=== PATIENT | male | born 1965 | race Caucasian/White ===

== ENCOUNTER 2023-05-10 13:03 | Outpatient (AMB) | payer OTHER, SELFPAY ==
--- NOTE | 2023-05-10 13:15 | A.OFFVIS_ITS ---
Intake Vital Signs 05/10/23 13:18 Height 5 ft 9 in Weight 232 lb BMI 34.3 BP 134/86 Blood Pressure Location Lt brachial Position Sitting Pulse 86 Intake Visit Reasons: Elevated LFTs Intake Note: Patient elevated Elevated LFTs Patient denies any GI issues. Career Coordinator Required: No Accompanied by: Self / Same As Patient Allergies No Known Allergies Allergy (Verified 05/10/23 13:15) HPI HPI Comments History of Present Illness Details 57-year-old male referred with elevated liver enzymes- he says he drank heavily-his entire life- until 10 days ago. He had increased over the past year-however he realizes that it was not good for his liver. No known family history of liver disease He has made dietary modifications as well. Appetite is good-no acid reflux He has no abdominal pain, nausea, vomiting, hematemesis, hematochezia fever chills EGD colonoscopy Dr. Carey 2020-no issues PFSH Surgical History H/O circumcision H/O colonoscopy H/O esophagogastroduodenoscopy Status post laser ablation of incompetent vein Social History Household Members: Spouse Alcohol intake: former Patient Tobacco Use Status: Former Tobacco user Review of Systems Const All systems reviewed & are unremarkable except as noted in HPI and below Card Denies chest pain and Denies dyspnea Resp Denies dyspnea GI Denies abdominal pain, Denies hematochezia, Denies change in bowel habits, Denies heartburn, Denies nausea and Denies vomiting Psych Denies anxiety and Denies depression Physical Exam Vital Signs: Last Vital Signs Pulse 86 05/10/23 13:18 BP 134/86 05/10/23 13:18 BMI result Body Mass Index 34.3 Const General: cooperative, healthy appearing, comfortable and no acute distress Orientation/consciousness: patient oriented x3 Limitations: no limitations Eyes Conjunctivae: conjunctivae normal Resp Effort & Inspection: normal respiratory effort and able to speak in complete sentences Auscultation: clear to auscultation bilaterally, no rales, no rhonchi and no wheezes Cardio Rate: regular rate Rhythm: regular rhythm Heart sounds: S1 normal heart sound present and S2 normal heart sound present GI Palpation (GI): Soft to palpation and nontender Auscultation: normal bowel sounds Skin General skin exam: no rashes or lesions noted Neuro General: patient oriented x3 Extrem General: Yes full ROM Psych Appearance: grossly normal and well kempt Mental Status: mental status grossly normal Speech and movement: Normal speech and movement present and Clear speech present Affect: normal affect Attitude: cooperative Thought process: Normal thought process present Thought content: Normal thought content present Insight: Good insight present (Psych) Judgement: Good judgement present (Psych) Results Reviewed Results Reviewed: 12/2022 AST/ALT-64/57 PT-110 Assessment & Plan Assessment & Plan (1) Elevated liver enzymes: Code(s): R74.8 - Abnormal levels of other serum enzymes Plan: Labs, U/S (2) Alcohol abuse: Comment: stopped 10 days ago Code(s): F10.10 - Alcohol abuse, uncomplicated Orders: Orders Vitamin B12 and Folate Today F10.10 - Alcohol abuse, uncomplicated, R74.8 - Abnormal levels of other serum enzymes Comprehensive Met. Panel Today K58.9 - Irritable bowel syndrome without diarrhea Ferritin Today D64.9 - Anemia, unspecified Liver Fibrosis Pnl Today F10.10 - Alcohol abuse, uncomplicated, R74.8 - Abnormal levels of other serum enzymes Liver Panel Today R10.11 - Right upper quadrant pain Thyroid Stimulating Hormone Today R19.8 - Other specified symptoms and signs involving the digestive system and abdomen Complete Blood Count Auto Diff Today F10.10 - Alcohol abuse, uncomplicated, R74.8 - Abnormal levels of other serum enzymes NELLIE Reflex Titer and Pattern Today R74.01 - Elevation of levels of liver transaminase levels Mitochondrial Antibody Today R74.01 - Elevation of levels of liver transaminase levels Smooth Muscle Antibody Today R74.8 - Abnormal levels of other serum enzymes Hepatitis A,B,C Profile Today R79.89 - Other specified abnormal findings of blood chemistry US abdomen complete Today F10.10 - Alcohol abuse, uncomplicated, R74.8 - Abnormal levels of other serum enzymes Patient Instructions: Very pleasant very pleasant 57-year-old male long history alcohol use referred with elevated liver enzymes most likely cause is alcohol and possible fatty liver He will continue to abstain from alcohol and will continue with dietary modifications We will complete lab workup. He will have abdominal ultrasound to assess liver. Encouraged to call questions or concerns Appreciate the opportunity assist in the care this Gent Coding Level of Care Code New Pt Level 3 (19326) Diagnoses Elevated liver enzymes R74.8 Alcohol abuse F10.10 Time Spent (min) 30
[2023-05-10 13:18] VITALS: BP 134/86; PULSE 86; BMI 34.3
== END 2023-05-10 13:50 | disposition home or self-care (01) ==
PROVIDERS: PCP Internal Medicine; Visit Provider Physician Assistant
DX: R74.8 Abnormal levels of other serum enzymes (principal); F10.10 Alcohol abuse, uncomplicated
CPT/HCPCS: 99203

== ENCOUNTER → 2023-05-10 13:03 | Outpatient (BNVA) | payer OTHER, SELFPAY | PROVIDERS: PCP Internal Medicine; Visit Provider Physician Assistant | DX: R74.01 Elevation of levels of liver transaminase levels (principal); R74.8 Abnormal levels of other serum enzymes; R79.89 Other specified abnormal findings of blood chemistry; K58.9 Irritable bowel syndrome, unspecified; R10.11 Right upper quadrant pain; R19.8 Other specified symptoms and signs involving the digestive system and abdomen; R93.89 Abnormal findings on diagnostic imaging of other specified body structures; D64.9 Anemia, unspecified; F10.10 Alcohol abuse, uncomplicated | CPT/HCPCS: 99202 ==

== ENCOUNTER 2023-06-07 09:00 | Outpatient (REF) | payer OTHER, SELFPAY ==
--- NOTE | ~2023-06-07 | US_ITS ---
EXAMINATION: US ABDOMEN COMPLETE CLINICAL INFORMATION: Alcohol abuse, uncomplicated. COMPARISON: None available. TECHNIQUE: Real-time imaging of the abdominal viscera. FINDINGS: PANCREAS: The head appears normal. The body and tail are obscured by bowel gas. ABDOMINAL AORTA: The proximal, mid, and distal segments are normal in caliber. INFERIOR VENA CAVA: Visualized portions are normal. LIVER: The liver is mildly enlarged measuring 19 cm. The liver contour is normal. There is diffuse increased liver parenchymal echogenicity, consistent with hepatic steatosis. No focal hepatic lesion. There is no intrahepatic biliary duct dilatation seen. GALLBLADDER: Normal. The gallbladder is physiologically distended without evidence of stones, sludge, polyps, wall thickening or pericholecystic fluid. COMMON BILE DUCT: Normal in caliber measuring 0.5 cm in diameter. RIGHT KIDNEY: Normal. No hydronephrosis. No renal calculi or focal parenchymal lesions. The kidney measures 12.1 cm in maximum dimension. LEFT KIDNEY: Normal. No hydronephrosis. No renal calculi or focal parenchymal lesions. The kidney measures 11.5 cm in maximum dimension. SPLEEN: Normal. The spleen measures 11.2 cm in maximum dimension. FREE FLUID: None. US/US abdomen complete IMPRESSION: Mildly enlarged liver with steatosis. No cirrhotic morphology or discrete liver mass.
[2023-06-07 09:48] LABS: MANUAL DIFF FLAG NO
[2023-06-07 10:35] LABS: Basophils Absolute Auto 0.1 X10*3/uL (0.0-0.2); Basophils Percent Auto 1.2 % (0-2); Eosinophils Absolute Auto 0.3 X10*3/uL (0.0-0.4); Eosinophils Percent Auto 5.1 % (0-4); Hematocrit 48.4 % (42.0-52.0); Hemoglobin 16.1 g/dl (14.0-18.0); Imm Gran Abs Auto 0.02 X10*3/uL (0.00-0.03); Imm Gran Pct Auto 0.3 % (0.0-0.4); Lymphocytes Absolute Auto 1.6 X10*3/uL (1.2-4.9); Lymphocytes Percent Auto 27.1 % (20-40); Mean Corpuscular HGB Conc 33.3 g/dl (31.0-36.0); Mean Corpuscular Hemoglobin 32.3 pg (27.0-33.0); Mean Corpuscular Volume 97.2 fL (80.0-98.0); Mean Platelet Volume 13.3 fL (9.4-12.4); Monocytes Absolute Auto 0.6 X10*3/uL (0.1-1.2); Monocytes Percent Auto 9.9 % (2-11); Neutrophils Absolute Auto 3.3 x10*3/uL (2.0-8.3); Neutrophils Percent Auto 56.4 % (45-73); Platelet Count 115 X10*3/uL (160-400); Red Blood Count 4.98 X10*6/uL (4.60-5.80); Red Cell Distribution Width 12.2 % (11.0-16.0); White Blood Count 5.9 X10*3/uL (4.8-10.8)
[2023-06-07 11:06] LABS: Alanine Aminotransferase 66 U/L (0-40); Albumin Level 4.2 g/dL (3.5-5.0); Alkaline Phosphatase 85 U/L (39-117); Anion Gap 12 (12-20); Aspartate Amino Transferase 60 U/L (5-37); Bilirubin Direct 0.2 mg/dL (0.0-0.5); Bilirubin Total 0.6 mg/dL (0.0-1.0); Blood Urea Nitrogen 11 mg/dL (9-16); Calcium 9.6 mg/dL (8.4-10.2); Carbon Dioxide 27 mmol/L (22-29); Chloride 105 mmol/L (96-108); Estimated Glomerular Filt Rate > 60; Glucose Random 118 mg/dL (60-115); Potassium 3.8 mmol/L (3.3-5.1); Sodium 140 mmol/L (135-145)
[2023-06-07 11:19] LABS: HBS Num1 0.01 mIU/mL (0-7.99); HBsAGNum1 0.31 S/CO (0.00-0.99); Hepatitis A Antibody IgM 0.32 Index (0-0.79); Hepatitis B Core Antibody Nonreactive (Nonreactive); Hepatitis B Surface Antigen Negative (Negative); ~HepC Num1 0.17 S/CO (0.00-0.79); ~Hepatitis A Antibody IgM Nonreactive (Nonreactive); ~Hepatitis B Surface Antibody NONREACTIVE (Nonreactive); ~Hepatitis C Antibody Nonreactive (Nonreactive)
[2023-06-07 11:25] LABS: Ferritin 198 ng/mL (20-250)
[2023-06-07 11:33] LABS: Folate 17.1 ng/mL (> or = 4.0); Vitamin B12 771 pg/mL (200-900)
[2023-06-10 10:33] LABS: Anti Nuclear Antibody Screen NEGATIVE (NEGATIVE)
[2023-06-10 13:14] LABS: Mitochondrial Antibodies NEGATIVE (NEGATIVE)
[2023-06-11 15:39] LABS: Smooth Muscle Antibody <20 U (<20)
[2023-06-12 16:39] LABS: FIB-ALT 58 U/L (9-46); FIB-Alpha-2-Macroglobulin 412 mg/dL (106-279); FIB-Apolipoprotein A1 133 mg/dL (94-176); FIB-GGT 96 U/L (3-85); FIB-Haptoglobin 117 mg/dL (43-212); FIB-Total Bilirubin 0.6 mg/dL (0.2-1.2); Liver Fibrosis Score 0.79; Liver Fibrosis Stage F4; Nec Inflam Act Grade A2; Nec Inflam Act Score 0.52
== END 2023-06-07 09:01 | disposition home or self-care (01) ==
LOC: HO.US 09:00
PROVIDERS: Visit Provider Physician Assistant
DX: F10.10 Alcohol abuse, uncomplicated (principal); R74.8 Abnormal levels of other serum enzymes; R74.01 Elevation of levels of liver transaminase levels; R10.11 Right upper quadrant pain; D64.9 Anemia, unspecified; K58.9 Irritable bowel syndrome, unspecified; R79.89 Other specified abnormal findings of blood chemistry; R19.8 Other specified symptoms and signs involving the digestive system and abdomen
CPT/HCPCS: 36415; 76700; 80053; 81596; 82248; 82607; 82728; 82746; 84443; 85025; 86015; 86038; 86381; 86704; 86706; 86709; 86803; 87340

== ENCOUNTER 2023-06-14 13:41 | Outpatient (AMB) | payer OTHER, SELFPAY ==
--- NOTE | 2023-06-14 13:43 | MHC.OFFVIS ---
Intake Vital Signs 06/14/23 13:47 Height 5 ft 9 in Weight 231 lb BMI 34.1 BP 136/87 Blood Pressure Location Lt brachial Position Sitting Pulse 95 Intake Visit Reasons: 5 week follow up Intake Note: Patient follow up for alcohol abuse, lab and US results. Patient denies any GI issues. 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 U/s -reviewed Appetite is good, he does not have heartburn he has no issues with bowels-no rectal bleed Discussion about risks he undertakes with excessive alcohol use-he acknowledges that he is aware No nausea, vomiting, hematemesis, hematochezia fever chills PFSH Surgical History H/O esophagogastroduodenoscopy H/O colonoscopy H/O circumcision Status post laser ablation of incompetent vein Social History (Updated 06/15/23 @ 13:02 by Ioana Boothe PA-C) Household Members: Spouse Alcohol intake: current Patient Tobacco Use Status: Former Tobacco user Review of Systems Const All systems reviewed & are unremarkable except as noted in HPI and below Card Denies chest pain GI Denies abdominal pain, Denies hematochezia, Denies change in bowel habits, Denies heartburn, Denies nausea and Denies vomiting Psych Denies anxiety and Denies depression Physical Exam Vital Signs: Last Vital Signs Pulse 95 06/14/23 13:47 BP 136/87 06/14/23 13:47 BMI result Body Mass Index 34.1 Const General: cooperative, comfortable and no acute distress Orientation/consciousness: patient oriented x3 Limitations: no limitations Eyes Conjunctivae: conjunctival abnormal (Conjunctiva injected bilaterally no drainage) Resp Effort & Inspection: normal respiratory effort and able to speak in complete sentences Auscultation: clear to auscultation bilaterally and no wheezes Cardio Rate: regular rate Rhythm: regular rhythm GI Palpation (GI): Soft to palpation and nontender Auscultation: normal bowel sounds Neuro General: patient oriented x3 Extrem General: Yes full ROM Psych Appearance: well kempt Speech and movement: Clear speech present Affect: Labile affect present Attitude: cooperative Thought content: Normal thought content present Judgement: Fair judgement present (Psych) Results Reviewed Results Reviewed: US/US abdomen complete IMPRESSION: Mildly enlarged liver with steatosis. No cirrhotic morphology or discrete liver mass. AST/ALT-60/66 Assessment & Plan Assessment & Plan (1) Abnormal ultrasound: Code(s): R93.89 - Abnormal findings on diagnostic imaging of other specified body structures (2) Elevated liver enzymes: Code(s): R74.8 - Abnormal levels of other serum enzymes Plan: Repeat labs (3) Alcohol abuse: Comment: Drinks most days, mostly beer In not forthcoming-somewhat difficult to assess-habit Code(s): F10.10 - Alcohol abuse, uncomplicated Plan: Discuss risks Orders: Orders Alcohol, Ethyl Urine Screen 06/14/23 F10.10 - Alcohol abuse, uncomplicated, R74.8 - Abnormal levels of other serum enzymes, R93.89 - Abnormal findings on diagnostic imaging of other specified body structures NM hepatobiliary w pharm 06/14/23 F10.10 - Alcohol abuse, uncomplicated, R74.8 - Abnormal levels of other serum enzymes, R93.89 - Abnormal findings on diagnostic imaging of other specified body structures Complete Blood Count Auto Diff 06/14/23 F10.10 - Alcohol abuse, uncomplicated, R74.8 - Abnormal levels of other serum enzymes, R93.89 - Abnormal findings on diagnostic imaging of other specified body structures Liver Panel 06/14/23 R10.11 - Right upper quadrant pain Patient Instructions: Pleasant 57-year-old male alcohol use , transaminitis, hepatomegaly, -he does not seem motivated to discontinue We discussed labs- plt > 100 None to compare etoh-rehab- will discuss with pcp No major barriers to understanding were identified Will follow back after ultrasound Coding Level of Care Code Est Pt Level 3 (05145) Diagnoses Abnormal ultrasound R93.89 Elevated liver enzymes R74.8 Alcohol abuse F10.10 Time Spent (min) 30
[2023-06-14 13:47] VITALS: BP 136/87; PULSE 95; BMI 34.1
== END 2023-06-14 15:08 | disposition home or self-care (01) ==
PROVIDERS: PCP Internal Medicine; Visit Provider Physician Assistant
DX: R93.89 Abnormal findings on diagnostic imaging of other specified body structures (principal); R74.8 Abnormal levels of other serum enzymes; F10.10 Alcohol abuse, uncomplicated
CPT/HCPCS: 99213

== ENCOUNTER → 2023-06-14 13:41 | Outpatient (BNVA) | payer OTHER, SELFPAY | PROVIDERS: PCP Internal Medicine; Visit Provider Physician Assistant | DX: R93.89 Abnormal findings on diagnostic imaging of other specified body structures (principal); R74.8 Abnormal levels of other serum enzymes; F10.10 Alcohol abuse, uncomplicated | CPT/HCPCS: 99212 ==

== ENCOUNTER → 2023-07-02 07:42 | Outpatient (REF) | payer OTHER, SELFPAY ==
--- NOTE | ~2023-07-02 | NM_ITS ---
EXAMINATION: BILIARY TRACT IMAGING STUDY WITH CCK CLINICAL INFORMATION: Alcohol abuse, uncomplicated. Abnormal findings on diagnostic imaging. COMPARISON: Abdominal ultrasound done on 06/07/2023.. TECHNIQUE: Serial gamma scintillation camera images were obtained over the abdomen for a total observation period of 60 minutes following the intravenous administration of 5 mCi Tc-99m mebrofenin. FINDINGS: There is good concentration of activity in the liver by 5 minutes post injection. Biliary activity is visualized by 5 minutes. The gallbladder is well visualized by 15 minutes. Small bowel is well visualized by 54 minutes. At 60 minutes post radiopharmaceutical injection, a 30-minute infusion of 2.1 micrograms Sincalide was then begun and an additional 40 minutes of images were obtained. There is good emptying of the gallbladder. By the end of the study there is good clearance of activity from the liver and visualization of diffuse small bowel activity. The calculated gallbladder ejection fraction is 88% (normal gallbladder ejection fraction is greater than 35%). NM/NM hepatobiliary w pharm IMPRESSION: Visualization of the gallbladder is evidence of a patent cystic duct and strong evidence against the diagnosis of acute cholecystitis. The common bile duct is patent. Gallbladder emptying and ejection fraction are normal. Liver function appears normal.
== END ==
LOC: HO.NUCMED 07:42
PROVIDERS: PCP Internal Medicine; Visit Provider Physician Assistant
DX: R93.89 Abnormal findings on diagnostic imaging of other specified body structures (principal); R74.8 Abnormal levels of other serum enzymes; F10.10 Alcohol abuse, uncomplicated
CPT/HCPCS: 78227; A9537; J2805

== ENCOUNTER 2024-07-16 08:59 | Emergency (ER) | payer OTHER, SELFPAY ==
--- NOTE | ~2024-07-16 | CT_ITS ---
EXAMINATION: CT ABDOMEN AND PELVIS WITH CONTRAST CLINICAL INFORMATION: Bladder mass COMPARISON: None available. TECHNIQUE: Multidetector volumetric images were obtained from the superior aspect of the liver through the pubic symphysis following administration 85 mL of Omnipaque 350 intravenous contrast. Sagittal and coronal reformatted images were obtained on the technologist's workstation. Oral contrast: No This CT examination was performed using dose optimization techniques as appropriate, variously including the following: *Automated exposure control *Adjustment of mA and/or kV according to patient size (this includes techniques or standardized protocols for targeted exams where dose is matched to indication/reason for exam; i.e. extremities or head) *Use of iterative reconstruction technique DLP: 699 mGy-cm FINDINGS: LUNG BASES: The visualized lung bases are unremarkable. LIVER, GALLBLADDER, AND BILIARY TREE: The liver is normal in size, shape, and attenuation. No focal hepatic lesion or biliary ductal dilatation is present. The gallbladder is unremarkable with no evidence of radiopaque gallstones, gallbladder wall thickening, or obvious pericholecystic inflammatory changes. PANCREAS: Unremarkable. SPLEEN: The spleen is unremarkable. There is a small accessory splenule along the inferior tip of spleen. ADRENAL GLANDS: Unremarkable. KIDNEYS AND URETERS: The kidneys are normal in size, shape, and attenuation. No hydronephrosis, hydroureter, or calculi seen. No perinephric stranding. There is a 9 mm hypodensity posterior cortex mid pole left kidney, indeterminate. BLADDER: The bladder is nondistended mild bladder wall thickening.. GASTROINTESTINAL TRACT: There is moderate scattered stool and diverticuli seen throughout the colon without distention. No evidence of diverticulitis. There is nonspecific mild wall thickening of sigmoid colon. No pericolic fat stranding seen. The small bowel loops are normal caliber. Appendix is not visualized. ABDOMINAL WALL: Small umbilical hernia containing fat is noted. There is a soft tissue density in the right inguinal canal measuring 6 cm in length LYMPH NODES: Normal. VASCULAR: Unremarkable. PELVIC VISCERA: There is moderate enlargement of prostate gland. Heterogeneous hyper density seen in the anterior aspect of prostate gland. Recommend ultrasound or MRI correlation. OSSEOUS STRUCTURES: No aggressive lytic or sclerotic process seen. There are degenerative disc changes T12-L1, L1-2, L2-3 and L5-S1 disc levels with ventral spondylosis. No aggressive lytic or sclerotic process seen. CT/CT abdomen pelvis w IV con IMPRESSION: Moderate prostate enlargement with mild bladder wall thickening. Slightly heterogenous anterior prostate gland. Recommend ultrasound or MRI correlation. Mild wall thick no sigmoid colon without pericolic fat stranding likely nonspecific or constipation. Fleischner guidelines were followed. Electronically signed by: Julián Rodriguez MD 07/16/2024 11:01 AM [facility]
[2024-07-16 09:02] VITALS: BP 122/73; PULSE 67; RESP 16; TEMP 36; O2SAT 98; BMI 41.2
[2024-07-16 09:08] VITALS: BP 122/73; PULSE 68; RESP 16; TEMP 36.3
[2024-07-16 09:46] LABS: Appearance Urine Clear; Color Urine Yellow; Glucose Urine UA Negative (Negative); Leukocyte Esterase Urine Negative (Negative); Nitrite Urine Negative (Negative); PH 6.5 (5.0-9.0); Specific Gravity - Urine 1.025 (1.005-1.025); Urine Blood Negative (Negative); Urine Ketones Negative (Negative); Urine Protein Trace mg/dL (Neg-Trace)
[2024-07-16 09:55] LABS: MANUAL DIFF FLAG NO
[2024-07-16 09:56] LABS: Basophils Percent Auto 0.7 % (0-2); Eosinophils Absolute Auto 0.3 X10*3/uL (0.0-0.4); Eosinophils Percent Auto 5.1 % (0-4); Hematocrit 48.1 % (42.0-52.0); Hemoglobin 16.4 g/dl (14.0-18.0); Imm Gran Abs Auto 0.01 X10*3/uL (0.00-0.03); Imm Gran Pct Auto 0.2 % (0.0-0.4); Lymphocytes Absolute Auto 1.8 X10*3/uL (1.2-4.9); Mean Corpuscular HGB Conc 34.1 g/dl (31.0-36.0); Mean Corpuscular Hemoglobin 31.9 pg (27.0-33.0); Mean Corpuscular Volume 93.6 fL (80.0-98.0); Mean Platelet Volume 12.8 fL (9.4-12.4); Monocytes Absolute Auto 0.5 X10*3/uL (0.1-1.2); Monocytes Percent Auto 8.8 % (2-11); Neutrophils Absolute Auto 3.1 x10*3/uL (2.0-8.3); Neutrophils Percent Auto 54.2 % (45-73); Platelet Count 107 X10*3/uL (160-400); Red Blood Count 5.14 X10*6/uL (4.60-5.80); Red Cell Distribution Width 12.7 % (11.0-16.0); White Blood Count 5.7 X10*3/uL (4.8-10.8)
--- NOTE | 2024-07-16 09:57 | ED.MALEGU ---
HPI - Male Genitourinary General Chief complaint: Urogenital-Male Stated complaint: Blood in urine Time Seen by Provider: 07/16/24 09:22 Source: patient Mode of arrival: ambulatory Limitations: no limitations History of Present Illness ED Provider: Mark Irwin HPI Narrative: 59 yold male with hypertension, high cholesterol obstructive sleep apnea, and alcohol abuse presents to the ED for presents to ED for hematuria for the past 4 days and slight dysuria. Patient states no abdominal pain, nausea, vomiting, fever, chills, or flank pain. Patient denies any recent trauma to abdomen, flank, or genitourinary systems. Related Data Home Medications ?Medication ?Instructions ?Recorded ?Confirmed benazepril 10 1 tab PO DAILY 05/10/23 mg-hydrochlorothiazide 12.5 mg tablet ferrous sulfate 325 mg (65 mg 325 mg PO DAILY 05/10/23 iron) tablet metoprolol succinate 25 mg 25 mg PO DAILY 05/10/23 tablet,extended release 24 hr simvastatin 40 mg tablet 40 mg PO QPM 05/10/23 Allergies Allergy/AdvReac Type Severity Reaction Status Date / Time No Known Allergies Allergy Verified 07/16/24 09:06 Review of Systems Review of Systems: hematuria, slight dysuria Yes all other systems are reviewed and are negative [facility] Past Medical History Surgical History H/O esophagogastroduodenoscopy H/O colonoscopy H/O circumcision Status post laser ablation of incompetent vein Social History Social History (Updated 06/15/23 @ 13:02 by Ioana Boothe PA-C) Household Members: Spouse Alcohol intake: current Patient Tobacco Use Status: Former Tobacco user Advance Directives: No Advance Directives Information Provided: Yes Do you have a plan to hurt others: No Plan Physical Exam Vital Signs: Vital Signs: Last Vital Signs Temp 98.3 F 07/16/24 12:10 Pulse 56 07/16/24 12:10 Resp 16 07/16/24 12:10 BP 138/76 07/16/24 12:10 Pulse Ox 97 07/16/24 10:28 O2 Del Method Room Air 07/16/24 12:10 BMI result Body Mass Index 41.2 Const: General: cooperative, healthy appearing, comfortable, no acute distress, well developed, alert, awake and Physically active Orientation/consciousness: patient oriented x3 HEENT: Head: Yes normal to inspection, Yes No palpable skull fracture present, Yes normocephalic, Yes atraumatic and No abrasion Eyes: General: appearance normal, both eyes and all related structures Neck: Neck: Yes normal visual inspection, Yes full ROM, Yes no lymphadenopathy, Yes no meningeal signs, Yes trachea midline, Yes supple, No anterior neck swelling and No tender Chest: Chest palpation & inspection: normal inspection of the chest and normal palpation of entire chest wall Resp: Effort & Inspection: normal respiratory effort and able to speak in complete sentences Auscultation: clear to auscultation bilaterally Cardio: Jugular venous distension: no JVD Heart sounds: S1 normal heart sound present and S2 normal heart sound present GI: Inspection: Yes normal to inspection Palpation (GI): Soft to palpation, not firm, nontender, no guarding and not rigid : General: Yes no CVA tenderness Back/Spine/Pelvis: Back: no CVA tenderness and No back tenderness Skin: General skin exam: no rashes or lesions noted, elasticity normal and turgor normal Neuro: General: patient oriented x3, gait normal, tone normal, moves all extremities, Normal light touch and pain sensation, no meningeal signs, no focal motor deficits, CN's II-XI intact bilaterally and normal sensation to monofilament Extrem: General: Yes normal to inspection, Yes full ROM and Yes capillary refill normal Psych: Appearance: grossly normal, well kempt and not disheveled Medications Administered Discontinued Medications Generic Name Dose Route Start Last Admin Trade Name Freq PRN Reason Stop Dose Admin Iohexol 100 ml 07/16/24 10:40 07/16/24 10:41 Iohexol 350 Mg/Ml 100 Ml Infus..Btl IV 07/16/24 10:41 85 ml ONCE ONE Administration Medical Decision Making Medical Decision Making MDM Narrative: 59-year-old male presents to ED stating hematuria for the past 4 days. Patient has last had hematuria last night. Patient states slight discomfort last night. Patient denies any abdominal pain. Labs showed normal H& H. UA negative for any blood. Kidney function normal. Patient denies any recent unprotected sexual activity. Was sent for CT scan to make sure there is no bladder mass prostate mass. 12:00pm: Abdominal CT scan shows BPH. Negative for kidney stones, pyelonephritis, or obvious bladder mass. CT scan does shows anterior prostate hyperdensity. Patient informed of this and need to follow-up with urology. Patient given copy of imaging. Patient explained worrisome signs and informed to return to the ED immediately. Not suspecting pyelonephritis, gross hematuria, anemia, pyelonephritis, kidney stones, urosepsis, or any other life-threatening etiology. Differential Diagnosis Differential Diagnoses: The differential diagnosis associated with the presentation includes (BPH, UTI, kidney stones) Admission/Observation Consideration of admission/observation: Escalation of care including admission/observation considered Lab Data MDM Lab Attestation statement: I reviewed the patient's lab results. 07/16/24 09:50 07/16/24 09:50 Labs: Lab Results 07/16/24 07/16/24 Range/Units 09:34 09:50 WBC 5.7 (4.8-10.8) X10*3/uL RBC 5.14 (4.60-5.80) X10*6/uL Hgb 16.4 (14.0-18.0) g/dl Hct 48.1 (42.0-52.0) % MCV 93.6 (80.0-98.0) fL MCH 31.9 (27.0-33.0) pg MCHC 34.1 (31.0-36.0) g/dl RDW 12.7 (11.0-16.0) % Plt Count 107 L (160-400) X10*3/uL MPV 12.8 H (9.4-12.4) fL Immature Gran % (Auto) 0.2 (0.0-0.4) % Neut % (Auto) 54.2 (45-73) % Lymph % (Auto) 31.0 (20-40) % [place] % (Auto) 8.8 (2-11) % Eos % (Auto) 5.1 H (0-4) % Baso % (Auto) 0.7 (0-2) % Lymph # (Auto) 1.8 (1.2-4.9) X10*3/uL [place] # (Auto) 0.5 (0.1-1.2) X10*3/uL Eos # (Auto) 0.3 (0.0-0.4) X10*3/uL Baso # (Auto) 0.0 (0.0-0.2) X10*3/uL Abs Immat Gran (auto) 0.01 (0.00-0.03) X10*3/uL Absolute Neuts (auto) 3.1 (2.0-8.3) x10*3/uL Absolute Nucleated RBC 0.000 (0.0-0.012) X10*3/uL Nucleated RBC % (auto) 0.0 (0.0-0.2) /100WBC PT 12.9 H (10.9-12.4) SEC INR 1.1 (0.9-1.1) APTT 37.8 H (26.0-36.8) SEC Sodium 140 (135-145) mmol/L Potassium 3.9 (3.3-5.1) mmol/L Chloride 104 (96-108) mmol/L Carbon Dioxide 28 (22-29) mmol/L Anion Gap 12 (12-20) BUN 15 (9-16) mg/dL Creatinine 0.80 (0.5-1.4) mg/dL Estim Creat Clear Calc 108.4 Estimated GFR > 60 Random Glucose 102 (60-115) mg/dL Calcium 9.2 (8.4-10.2) mg/dL Total Bilirubin 1.0 (0.0-1.0) mg/dL AST 39 H (5-37) U/L ALT 40 (0-40) U/L Alkaline Phosphatase 74 (39-117) U/L Total Protein 7.5 (6.5-8.0) g/dL Albumin 4.0 (3.5-5.0) g/dL Urine Color Yellow Urine Appearance Clear Urine pH 6.5 (5.0-9.0) Ur Specific [place] 1.025 (1.005-1.025) Urine Protein Trace (Neg-Trace) mg/dL Urine Glucose (UA) Negative (Negative) mg/dL Urine Ketones Negative (Negative) mg/dL Urine Blood Negative (Negative) Urine Nitrite Negative (Negative) Ur Leukocyte Esterase Negative (Negative) Independent Interpretation I performed an independent interpretation of an: CT Scan Radiology Impression Discussion of test interpretation with radiology: I have reviewed the radiologist's reading. Independent Historian Clinical information obtained from an independent historian. History obtained from or confirmed by: Other (Patient) External Record Review External record reviewed: Other (Prior Visits) Discharge Plan Discharge Clinical Impression: BPH (benign prostatic hyperplasia), Hematuria Patient Disposition: Home, Self-Care Instructions: Enlarged Prostate (BPH) (ED), Hematuria (ED) Additional Instructions: You need follow-up with urologist. Return to the ED immediately for profuse blood in urine, abdominal pain, nausea, vomiting, flank pain, fever, chills, testicular pain, or any other concerning symptoms. CT/CT abdomen pelvis w IV con IMPRESSION: Moderate prostate enlargement with mild bladder wall thickening. Slightly heterogenous anterior prostate gland. Recommend ultrasound or MRI correlation. Mild wall thick no sigmoid colon without pericolic fat stranding likely nonspecific or constipation. Fleischner guidelines were followed. Electronically signed by: Julián Rodriguez MD 07/16/2024 11:01 AM [facility] [place] Prescriptions: No Action ferrous sulfate 325 mg (65 mg iron) tablet 325 mg PO DAILY benazepril-hydrochlorothiazide 10-12.5 mg tablet 1 tab PO DAILY metoprolol succinate 25 mg tablet extended release 24 hr 25 mg PO DAILY simvastatin 40 mg tablet 40 mg PO QPM Referrals: Walker De La Fuente MD [Physician] - (Hematuria, BPH, hyperdensity on prostate gland per CT scan) Stand Alone Forms: Work/School Release Interventions: ED Discharge Assessment Last Done: 07/16/24 12:10 Discharge Date/Time: 07/16/24 12:12 Print Language: Taiwanese
[2024-07-16 10:01] LABS: INTERNATIONAL NORM RATIO 1.1 (0.9-1.1); Prothrombin Time 12.9 SEC (10.9-12.4)
[2024-07-16 10:03] LABS: Partial Thromboplastin Time 37.8 SEC (26.0-36.8)
[2024-07-16 10:14] LABS: Alanine Aminotransferase 40 U/L (0-40); Alkaline Phosphatase 74 U/L (39-117); Anion Gap 12 (12-20); Aspartate Amino Transferase 39 U/L (5-37); Blood Urea Nitrogen 15 mg/dL (9-16); Calcium 9.2 mg/dL (8.4-10.2); Carbon Dioxide 28 mmol/L (22-29); Chloride 104 mmol/L (96-108); Creatinine Clr Calc Pharmacy 108.4; Estimated Glomerular Filt Rate > 60; Glucose Random 102 mg/dL (60-115); Potassium 3.9 mmol/L (3.3-5.1); Sodium 140 mmol/L (135-145); Total Protein 7.5 g/dL (6.5-8.0)
[2024-07-16 10:28] VITALS: BP 125/68; PULSE 61; RESP 16; TEMP 36.8; O2SAT 97
[2024-07-16] MEDS: iohexoL 350 MG/ML 100 ML INFUS..BTL IV (10:41)
[2024-07-16 11:52] VITALS: BP 138/76; PULSE 56; RESP 16; TEMP 36.8
[2024-07-16 12:10] VITALS: BP 138/76; PULSE 56; RESP 16; TEMP 36.8
== END 2024-07-16 12:12 | disposition home or self-care (01) ==
PROVIDERS: Physician Assistant; Emergency Provider Emergency Medicine Emergency Medical Services; PCP Internal Medicine
DX: N40.0 Benign prostatic hyperplasia without lower urinary tract symptoms (principal); R31.9 Hematuria, unspecified; R30.0 Dysuria; R10.2 Pelvic and perineal pain; Z79.899 Other long term (current) drug therapy; Z87.891 Personal history of nicotine dependence
CPT/HCPCS: 36415; 74177; 80053; 81003; 85025; 85610; 85730; 99284; Q9967

== ENCOUNTER 2024-09-14 15:45 | Outpatient (AMB) | payer OTHER, SELFPAY ==
--- NOTE | 2024-09-14 16:02 | A.OFFVIS_ITS ---
Intake Visit Reasons: BPH Intake Note: New Patient presents for initial visit for BPH Urology Medications: none Blood Thinner: none PVR: 27ml's Leather Softener Required: No Accompanied by: Self / Same As Patient Allergies No Known Allergies Allergy (Verified 09/14/24 20:50) Medication List - Last Reconciled 09/14/24 by LEANNA Alexander benazepril-hydrochlorothiazide 10-12.5 mg 1 tab PO DAILY metoprolol succinate ER 25 mg PO DAILY simvastatin 40 mg PO QPM tamsulosin 0.4 mg PO BEDTIME 30 days HPI Comments Details: Moncho is a pleasant 59-year-old male patient of Dr. Denney. He has a past medical history of hypertension and hyperlipidemia. He presents to the office today as a new patient for ongoing lower urinary tract symptoms. In discussion with the patient today he reports noting ongoing issues with urinary urgency, urinary frequency, and episodes of nocturia up to 3 times per night. He reports having followed up with his PCP at which time he was started on oxybutynin and feels this has been somewhat helpful however has been experiencing dry mouth and constipation. In office urinalysis results reviewed with the patient today. PVR 27 mL. He denies hematuria, dysuria, foul smelling urine, changes to urinary stream, flank pain, fever, and or chills. In review of patient's chart it appears he has had a recent CT of the abdomen. 08/06 bilateral kidneys are normal in size, shape, and attenuation. No hydronephrosis, hydroureter, or calculi seen bilaterally. No perinephric stranding. There is a 9 mm hypodensity posterior cortex mid pole left kidney, indeterminate. The bladder is nondistended. Moderate prostate enlargement with mild bladder wall thickening. Slightly heterogeneous anterior prostate gland. LILLIE offered however deferred. He otherwise offers no other issues or concerns at this time. [facility] Surgical History H/O esophagogastroduodenoscopy H/O colonoscopy H/O circumcision Status post laser ablation of incompetent vein Social History Household Members: Spouse Alcohol intake: current Patient Tobacco Use Status: Former Tobacco user Review of Systems Const All systems reviewed & are unremarkable except as noted in HPI and below Physical Exam Const General: cooperative, healthy appearing, comfortable, no acute distress, well developed, alert and awake Nutritional Appearance: overweight Orientation/consciousness: patient oriented x3 Limitations: no limitations HEENT Head: Yes normal to inspection, Yes normocephalic and Yes atraumatic Ears: hearing grossly normal bilaterally Eyes General: appearance normal, both eyes and all related structures Neck Neck: Yes normal visual inspection and Yes trachea midline Chest Chest palpation & inspection: normal inspection of the chest Resp Effort & Inspection: normal respiratory effort and able to speak in complete sentences Cardio Rate: regular rate GI Inspection: Yes normal to inspection General: Yes no CVA tenderness Back/Spine/Pelvis Back: no CVA tenderness Skin General skin exam: no rashes or lesions noted Neuro General: patient oriented x3 Extrem General: Yes normal to inspection Psych Appearance: grossly normal and well kempt Mental Status: mental status grossly normal Speech and movement: Normal speech and movement present and Clear speech present Affect: normal affect Attitude: cooperative Thought process: Normal thought process present Thought content: Normal thought content present Insight: Fair insight present (Psych) Judgement: Fair judgement present (Psych) Office Procedures Post Void Residual Post Residual Void Post Void Residual (PVR): 27 [id number] Void Residual by ultrasound Results AMB Urinalysis, Automated UA Leukoctes 0 Gualberto/uL Last Edit by Brittany Severino on 09/14/24 16:16 UA Nitrite Last Edit by Brittany Severino on 09/14/24 16:16 UA Urobilinogen 0.2 mg/dL Last Edit by Brittany Severino on 09/14/24 16:16 UA Protein 15 mg/dL Last Edit by Brittany Severino on 09/14/24 16:16 UA pH 6.0 Last Edit by Brittany Severino on 09/14/24 16:16 UA Blood 0 Tom/uL Last Edit by Brittany Severino on 09/14/24 16:16 UA Specific Ogden 1.025 Last Edit by Brittany Kwongvalencia on 09/14/24 16:16 UA Ketone Last Edit by Brittany Elenitavalencia on 09/14/24 16:16 UA Bilirubin 0 mg/dL Last Edit by Brittany Elenitavalencia on 09/14/24 16:16 UA Glucose 0 mg/dL Last Edit by Brittany Elenitavalencia on 09/14/24 16:16 Results Reviewed Results Reviewed: Laboratory Last Values Urine pH (Auto) 6.0 09/14/24 16:14 Specific [place]den (Auto) 1.025 09/14/24 16:14 Urine Protein (Auto) 15 mg/dL 09/14/24 16:14 Glucose (UA)(Auto) 0 mg/dL 09/14/24 16:14 Urine Blood (Auto) 0 Tom/uL 09/14/24 16:14 Urine Bilirubin (Auto) 0 mg/dL 09/14/24 16:14 Urine Urobilinogen (Auto) 0.2 mg/dL 09/14/24 16:14 Leukocyte Esterase (Auto) 0 Gualberto/uL 09/14/24 16:14 Date of Service: 07/16/24 EXAMINATION: CT ABDOMEN AND PELVIS WITH CONTRAST FINDINGS: LUNG BASES: The visualized lung bases are unremarkable. LIVER, GALLBLADDER, AND BILIARY TREE: The liver is normal in size, shape, and attenuation. No focal hepatic lesion or biliary ductal dilatation is present. The gallbladder is unremarkable with no evidence of radiopaque gallstones, gallbladder wall thickening, or obvious pericholecystic inflammatory changes. PANCREAS: Unremarkable. SPLEEN: The spleen is unremarkable. There is a small accessory splenule along the inferior tip of spleen. ADRENAL GLANDS: Unremarkable. KIDNEYS AND URETERS: The kidneys are normal in size, shape, and attenuation. No hydronephrosis, hydroureter, or calculi seen. No perinephric stranding. There is a 9 mm hypodensity posterior cortex mid pole left kidney, indeterminate. BLADDER: The bladder is nondistended mild bladder wall thickening.. GASTROINTESTINAL TRACT: There is moderate scattered stool and diverticuli seen throughout the colon without distention. No evidence of diverticulitis. There is nonspecific mild wall thickening of sigmoid colon. No pericolic fat stranding seen. The small bowel loops are normal caliber. Appendix is not visualized. ABDOMINAL WALL: Small umbilical hernia containing fat is noted. There is a soft tissue density in the right inguinal canal measuring 6 cm in length LYMPH NODES: Normal. VASCULAR: Unremarkable. PELVIC VISCERA: There is moderate enlargement of prostate gland. Heterogeneous hyper density seen in the anterior aspect of prostate gland. Recommend ultrasound or MRI correlation. OSSEOUS STRUCTURES: No aggressive lytic or sclerotic process seen. There are degenerative disc changes T12-L1, L1-2, L2-3 and L5-S1 disc levels with ventral spondylosis. No aggressive lytic or sclerotic process seen. IMPRESSION: Moderate prostate enlargement with mild bladder wall thickening. Slightly heterogenous anterior prostate gland. Recommend ultrasound or MRI correlation. Mild wall thick no sigmoid colon without pericolic fat stranding likely nonspecific or constipation. Fleischner guidelines were followed. Assessment & Plan Assessment & Plan (1) Lower urinary tract symptoms: Code(s): R39.9 - Unspecified symptoms and signs involving the genitourinary system Category: Medical (2) Urinary urgency: Code(s): R39.15 - Urgency of urination Category: Medical (3) Urinary frequency: Code(s): R35.0 - Frequency of micturition Category: Medical (4) Nocturia: Code(s): R35.1 - Nocturia Category: Medical (5) Enlarged prostate: Code(s): N40.0 - Benign prostatic hyperplasia without lower urinary tract symptoms Category: Medical (6) Bladder wall thickening: Code(s): N32.89 - Other specified disorders of bladder Category: Medical Plan In office urinalysis results with the patient today; as noted above. PVR 27 mL. We discussed further treatment options for lower urinary tract symptoms patient was experiencing. Stop oxybutynin. Start tamsulosin as discussed and prescribed. We discussed bladder triggers/irritants. Recent CT results reviewed with the patient today; as noted above; we discussed further workup of indeterminate. Will obtain PSA. We discussed possible near future in office cystoscopy and or urodynamics for further assessment evaluation. We discussed importance of weight loss in relation to lower urinary tract symptoms as well as overall health and well-being. Follow-up in 1-3 months with PSA and PVR; or sooner with any issues, concerns, and or questions. Orders: Orders AMB Urinalysis Automated Today Z13.9 - Encounter for screening, unspecified AMB Post Void Residual by ultrasound Today N39.41 - Urge incontinence Prostate Specific Antigen Today N40.0 - Benign prostatic hyperplasia without lower urinary tract symptoms, R39.9 - Unspecified symptoms and signs involving the genitourinary system Medications: New tamsulosin 0.4 mg PO BEDTIME 30 days 30 caps 3RF N40.1 - Benign prostatic hyperplasia with lower urinary tract symptoms, R35.1 - Nocturia Patient Instructions: The patient had an opportunity to ask questions regarding the treatment plan. All questions were answered. Physical exam, labs, and imaging were discussed and reviewed in detail. As well as risks, benefits, and discussion of treatment choices. No major barriers to understanding were identified. The patient expressed understanding and agreement with the above treatment plan. The patient was made aware they should contact our office by phone for worsening of their current condition, the appearance of new symptoms, or with any questions or concerns. Compliance is encouraged with any medications and follow up testing that is ordered. It is a privilege to be allowed the opportunity to participate in? your urological care.? Again, if you have any questions or concerns If you have any questions or concerns please do not hesitate to contact me. The office is [phone]. This note is constructed using voice recognition software. While every effort has been made to ensure accuracy director security management errors may have been included. Yours sincerely, LEANNA Alexander Coding Level of Care Code New Pt Level 4 (93214) Diagnoses Lower urinary tract symptoms R39.9 Urinary urgency R39.15 Urinary frequency R35.0 Nocturia R35.1 Enlarged prostate N40.0 Bladder wall thickening N32.89 CPT Codes Post Residual Void - PVR CPT Code: 83318-[id number] Void Residual by ultrasound ([id number])
--- OUTSIDE RECORDS SUMMARY | 2024-09-14 17:11 | XMS_ITS ---
Author Organization [facility] Address [address] [place] [address] Care Team Providers Care Professor Of Psychology Name Role Phone HUSSEIN LIEBERMAN Primary Care Provider REASON FOR VISIT Followup Encounters Encounter Location Date Provider Diagnosis [facility] [address] [place] [address] 07/21/2023 HUSSEIN LIEBERMAN Plan Of Treatment No Information Progress Notes * Moncho ADAMSDOB: [birth year] (59 yo M)Acc No.[id number]:07/21/2023 Progress Notes Patient:?Moncho ADAMS Provider:?Hussein Lieberman MD :1965???Age:58 Y???Sex:Male Rocky e:07/21/2023 Address:[address] [place], [place] [id number] Subjective: * Chief Complaints: * ???1. Followup. * Medical History:? Objective: * Vitals:? Assessment: Plan: * Treatment: * Billing Information: * Visit Code:? * Procedure Codes:? * Electronic signature of KYLAH LIEBERMAN MD on 09/14/2024 at 05:11 PM EST Sign off status: Pending * Provider:?Hussein Lieberman MD Date:?2022 Generated for Robles bejarano/Lexi/Inocenciasmitting on:?09/14/2024 05:11 PM EST
--- OUTSIDE RECORDS SUMMARY | 2024-09-14 17:11 | XMS_ITS ---
Author Organization [facility] Address [address] [place] [address] Care Team Providers Care [place] Operator Name Role Phone TROY LIEBERMAN Primary Care Provider [phone] REASON FOR VISIT refill Medications Medication SIG (Take, Route, Frequency, Duration) Notes Start Date End Date Status Ferrous Sulfate 325 (65 Fe) MG TAKE 1 TABLET BY MOUTH EVERY DAY Orally for 90 days Active Encounters Encounter Location Date Provider Diagnosis [address] [address] 04/23/2023 TROY LIEBERMAN Plan Of Treatment Medication Medication Name Sig Start Date Stop Date Notes Ferrous Sulfate 325 (65 Fe) MG TAKE 1 TA BLET BY MOUTH EVERY DAY Orally for 90 days Progress Notes * Moncho ADAMSDOB: [birth year] (57 yo M)Acc No.[id number]:04/23/2023 Patient:?Moncho Adams :1965???Age:57 Y???Sex:Male Address:[address] [place] [address], [address] * Refills? Refill Ferrous Sulfate Tablet, 325 (65 Fe) MG, Orally, 90 Tablet, TAKE 1 TABLET BY MOUTH EVERY DAY, 90 days, Refills=1 * true * Date:? Generated for Robles bejarano/Lexi/Inocenciasmitting on:?09/14/2024 05:11 PM EST
--- OUTSIDE RECORDS SUMMARY | 2024-09-14 17:12 | XMS_ITS ---
Author Organization [facility] Address [address] [place] [address] Care Team Providers Care Producer Assistant Name Role Phone HUSSEIN HARRIS Primary Care Provider REASON FOR VISIT Medication issue Medications Medication SIG (Take, Route, Frequency, Duration) Notes Start Date End Date Status Benazepril-hydroCHLORO thiazide 10-12.5 MG TAKE 1 TABLET BY MOUTH EVERY DAY FOR 90 DAYS for 90 Active Metoprolol Succinate ER 25 MG TAKE 1 TABLET BY MOUTH EVERY DAY FOR 90 DAYS for 90 Active Simvastatin 40 MG TAKE 1 TABLET BY MOUTH EVERY DAY IN THE EVENING ORALLY ONCE A DAY 90 DAYS for 90 Active Betamethasone Dipropionate 0.05 % 1 application to affected area Externally Once a day for 30 days 01/07/2023 05/07/2023 Active predniSONE 10 MG Oral for 0 take 2 tabs PO x 2 days then 1 tab x 3 days. 07/17/2015 Not-Taking Doxycycline Hyclate 100 MG Oral for 10 TAKE ONE CAPSULE BY MOUTH TWICE DAILY FOR 10 DAYS 08/15/2015 Not-Taking Diclofenac Sodium 75 MG 1 tablet Orally Once a day for 90 Not-Taking Benazepril-hydroCHLORO thiazide 20-25 MG 1 tablet Orally Once a day for 90 days TAKE 1 TABLET BY MOUTH EVERY DAY DIRECTED 12/06/2012 Not-Taking Naproxen 500 mg 1 tablet as needed Orally Twice a day for 20 Not-Taking Diprolene AF 0.05 % 1 application to affected area Externally Once a day 07/18/2018 Not-Taking Folic Acid 1 MG 1 tablet Orally Once a day Not-Taking Methotrexate 2.5 MG 5 TAB Orally WEEKLY Not-Taking traMADol HCl 50 MG 1 tablet as needed Orally every 6 hrs for 30 08/06/2017 Not-Taking Clotrimazole-Betametha sone 1-0.05 % 1 application to affected area Externally Twice a day for 21 03/22/2017 Not-Taking Triamcinolone Acetonide 0.1 % External Twice daily for 0 APPLY AND GENTLY MASSAGE INTO AFFECTED AREA(S) TWICE DAILY. 10/25/2014 Not-Taking Ferrous Sulfate 325 (65 Fe) MG TAKE 1 TABLET BY MOUTH EVERY DAY for 90 Active Aspirin 325 MG Oral Daily for 0 TAKE 1 TABLET DAILY 10/08/2006 Not-Taking Meclizine HCl 12.5 MG 2 tablets as needed Orally thrice daily for 30 days 07/13/2019 Not-Taking Diclofenac Potassium 50 MG TAKE 1 TABLET BY MOUTH TWICE A DAY FOR 30 DAYS for 30 Not-Taking Cyclobenzaprine HCl 10 MG 1 tablet Orally Three times a day for 30 days Not-Taking Vitamin D 1000 UNIT Oral for 0 05/23/2012 Active Encounters Encounter Location Date Provider Diagnosis [address] [place] [address] 04/22/2023 HUSSEIN HARRIS Nonintractable headache, unspecified chronicity pattern, unspecified headache type R51.9 and Essential (primary) hypertension I10 Assessments Encounter Date Diagnosis (ICD Code) Assessment Notes Treatment Notes Treatment Clinical Notes Section Notes 04/22/2023 Nonintractable headache, unspecified chronicity pattern, unspecified headache type (ICD-10 - R51.9) 04/22/2023 Essential (primary) hypertension (ICD-10 - I10) Ran out of meds BP high Not compliant Will refill Metoprolol succinate ER 25 mg #90 with coupon. Benazapril/HCTZ 01/09.5 #90 with coupin 01/29/21 has gained weight, recognizes, inactivity, will move more and stop drinking, will reevaluate in 4 weeks at next dick Plan Of Treatment Medication Medication Name Sig Start Date Stop Date Notes Benazepril-hydroCHLOROthiazi de 10-12.5 MG TAKE 1 TABLET BY MOUTH EVERY DAY FOR 90 DAYS for 90 Metoprolol Succinate ER 25 MG TAKE 1 TAB LET BY MOUTH EVERY DAY FOR 90 DAYS for 90 Simvastatin 40 MG TAKE 1 TABLET BY TIERNEY TH EVERY DAY IN THE EVENING ORALLY ONCE A DAY 90 DAYS for 90 Pending Test Test Name Order Date Lipid Panel 04/22/2023 Chem-Comprehensive 04/22/2023 CBC 04/22/2023 HgA1C 04/22/2023 Progress Notes * Moncho ADAMSDOB: [birth year] (57 yo M)Acc No.[id number]:04/22/2023 Progress Notes Patient:Moncho Espino Provider:?Hussein Harris MD :[id number]???Age:57 Y???Sex:Male Rocky e:04/22/2023 Address:[address] [place], [place] [id number] Subjective: * Chief Complaints: * ???Medication issue * HPI: ???Constitutional:? 04/22/23 Called requesting urgent visit Noticed BP has been high . Ran out of meds 2 weeks ago, Has been having headache ?01/07/23 Has a new insurance Saw his Rekha yesterday Broke up business relatition with [employer] Every time he gets his exwives takes the property which belongs to both of them Compliat with his meds. ?Has 2 grandchildren #Sheree 2 yrs and Constantin 9 months, both from son Arjun. Lives in Sees them every weekend . Babysits them. Went to [facility] 2 months ago with brother Cristóbal. For 10 days Enjoyed his time visited family. 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 ?07/29/22 Came for follow up Discussed elevated LFTS Agrees to cut down on his alcohol . Sadia left today with [facility] for a small vacation . 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 pt states is working on it but she is on vacation for a week with her sisters he needs medication refills. no new complaints. has not taken medication in 4 days ?10/14/21 Came to the office Before Ami a coworker was sick and he had Covid. He went and bought a Covid kit and tested positive and his younger brother Richie was positive Had one day of bodyache and sore throat Quarantined for 7 days. in house Drank wine Had Pfizer vaccine and booster before his infection. Has cut down drinking a lot. 80% Drinks beer/ wime 2-3 times a week. Work has been very busy. Has brother Richie and Enrique from [place] help him. Compliant with his medications. 10/14/21 Came to the office Before [place] a coworker was sick and he had Covid. He went and bought a Covid kit and tested positive and his younger brother Richie was positive Had one day of bodyache and sore throat Quarantined for 7 days. in house Drank wine Had Pfizer vaccine and booster before his infection. Has cut down drinking a lot. 80% Drinks beer/ wime 2-3 times a week. Work has been very busy. Has brother Richie and Enrique from [place] help him. Compliant with his medications. ?07/10/21 Came to the office. Had colonoscopy with Dr Dorsey 07/08/21 Tics and IH . Also had EGD Erthematous fundi. Takes a smoothie with mirta vera, beets, brad, pine apple, fresh cabazon juice, honey, Linassa and water in magic Bullet Makes it for 3 days. 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 Compliant with his meds Not taking aspirin and cyclobenzaprine. Has his first grandson Sheree 10 months ald Loves spending time with him on weekends ?03/18/21 Came to the office Brought Alcohol free Yogi [employer]! States he stopped alcohol for past [address] Carina Carey on 03/13/21 Has EGD on 03/31 and Colonoscopy 06/04/21 She told him to abstain from alcohol. eat fruits and vegetables, decrease red meat. Went to [facility] ED 2 weeks ago on 03/07/21 with right sided LBP . Marbelly drove him there. Had CT abdomen and labs . Given MS for pain Told it was muscle spasm Discharge on Cyclobenzaprine 10 mg #8 pills Told to take Tylenol 3 tablets three times as needed The pain persisted and is better for the first time Became a grandfather for first time BRENNON Hanson 09/09/21 . Son Radha son. Brother Loco has new insurance and wants to be a patient. ?03/07/21 increasing worse right back pain over last few days, today it is very severe and he was going to go to the ER for the pain. denies any urinary symptoms. educated he needs imaging, denies having a hx of kidney stones or gall stones. Meds reviewed and reconciled. * Medical History:? * Surgical History:? * Hospitalization/Major Diagno stic Procedure:? * Medications:?TakingVitamin D 1000 UNIT TABS Oral Simvastatin 40 MG Tablet TAKE 1 TABLET BY MOUTH EVERY DAY IN THE EVENING ORALLY ONCE A DAY 90 DAYS Ferrous Sulfate 325 (65 Fe) MG Tablet TAKE 1 TABLET BY MOUTH EVERY DAY Metoprolol Succinate ER 25 MG Tablet Extended Release 24 Hour TAKE 1 TABLET BY MOUTH EVERY DAY FOR 90 DAYS Benazepril-hydroCHLOROthiazide 10-12.5 MG Tablet TAKE 1 TABLET BY MOUTH EVERY DAY FOR 90 DAYS Betamethasone Dipropionate 0.05 % Cream 1 application to affected area Externally Once a day, stop date 05/07/2023Taking Vitamin D 1000 UNIT TABS Oral Taking Simvastatin 40 MG Tablet TAKE 1 TABLET BY MOUTH EVERY DAY IN THE EVENING ORALLY ONCE A DAY 90 DAYS Taking Ferrous Sulfate 325 (65 Fe) MG Tablet TAKE 1 TABLET BY MOUTH EVERY DAY Taking Metoprolol Succinate ER 25 MG Tablet Extended Release 24 Hour TAKE 1 TABLET BY MOUTH EVERY DAY FOR 90 DAYS Taking Benazepril-hydroCHLOROthiazide 10-12.5 MG Tablet TAKE 1 TABLET BY MOUTH EVERY DAY FOR 90 DAYS Taking Betamethasone Dipropionate 0.05 % Cream 1 application to affected area Externally Once a day, stop date 05/07/2023Not-TakingCyclobenzaprine HCl 10 MG Tablet 1 tablet Orally Three times a dayDiclofenac Potassium 50 MG Tablet TAKE 1 TABLET BY MOUTH TWICE A DAY FOR 30 DAYS Meclizine HCl 12.5 MG Tablet 2 tablets as needed Orally thrice dailyAspirin 325 MG TABS Oral Daily, Notes: TAKE 1 TABLET DAILYTriamcinolone Acetonide 0.1 % OINT External Twice daily, Notes: APPLY AND GENTLY MASSAGE INTO AFFECTED AREA(S) TWICE DAILY.Clotrimazole-Betamethasone 1-0.05 % Cream 1 application to affected area Externally Twice a daytraMADol HCl 50 MG Tablet 1 tablet as needed Orally every 6 hrsMethotrexate 2.5 MG Tablet 5 TAB Orally WEEKLYFolic Acid 1 MG Tablet 1 tablet Orally Once a dayDiprolene AF 0.05 % Cream 1 application to affected area Externally Once a dayNaproxen 500 mg Tablet 1 tablet as needed Orally Twice a dayBenazepril-hydroCHLOROthiazide 20-25 MG Tablet 1 tablet Orally Once a day, Notes: TAKE 1 TABLET BY MOUTH EVERY DAY DIRECTEDDiclofenac Sodium 75 MG Unspecified 1 tablet Orally Once a dayDoxycycline Hyclate 100 MG CAPS Oral , Notes: TAKE ONE CAPSULE BY MOUTH TWICE DAILY FOR 10 DAYSpredniSONE 10 MG TABS Oral , Notes: take 2 tabs PO x 2 days then 1 tab x 3 days.Not-Taking Cyclobenzaprine HCl 10 MG Tablet 1 tablet Orally Three times a dayNot-Taking Diclofenac Potassium 50 MG Tablet TAKE 1 TABLET BY MOUTH TWICE A DAY FOR 30 DAYS Not-Taking Meclizine HCl 12.5 MG Tablet 2 tablets as needed Orally thrice dailyNot-Taking Aspirin 325 MG TABS Oral Daily, Notes: TAKE 1 TABLET DAILYNot-Taking Triamcinolone Acetonide 0.1 % OINT External Twice daily, Notes: APPLY AND GENTLY MASSAGE INTO AFFECTED AREA(S) TWICE DAILY.Not-Taking Clotrimazole-Betamethasone 1-0.05 % Cream 1 application to affected area Externally Twice a dayNot-Taking traMADol HCl 50 MG Tablet 1 tablet as needed Orally every 6 hrsNot-Taking Methotrexate 2.5 MG Tablet 5 TAB Orally WEEKLYNot- Taking Folic Acid 1 MG Tablet 1 tablet Orally Once a dayNot-Taking Diprolene AF 0.05 % Cream 1 application to affected area Externally Once a dayNot-Taking Naproxen 500 mg Tablet 1 tablet as needed Orally Twice a dayNot-Taking Benazepril-hydroCHLOROthiazide 20-25 MG Tablet 1 tablet Orally Once a day, Notes: TAKE 1 TABLET BY MOUTH EVERY DAY DIRECTEDNot-Taking Diclofenac Sodium 75 MG Unspecified 1 tablet Orally Once a dayNot-Taking Doxycycline Hyclate 100 MG CAPS Oral , Notes: TAKE ONE CAPSULE BY MOUTH TWICE DAILY FOR 10 DAYSNot-Taking predniSONE 10 MG TABS Oral , Notes: take 2 tabs PO x 2 days then 1 tab x 3 days. Objective: Assessment: * Assessment: 1.?Essential (primary) hyper tension - I10, Ran out of meds BP high Not compliant Will refill Metoprolol succinate ER 25 mg #90 with coupon. Benazapril/HCTZ 20/12.5 #90 with coupin/ has gained weight, recognizes, inactivity, will move more and stop drinking, will reevaluate in 4 weeks at next dick?2.?Nonintractable headache, unspecified chronicity pattern, unspecified headache type - R51.9 (Primary)? Plan: * Treatment: 2.?Essential (primary) hyper tension?LAB: Lipid Panel ?LAB: Chem-Comprehensive ?LAB: CBC ?LAB: HgA1C * Procedure Codes:? * Billing Information: * Visit Code:? 91822 Office Visit, Est Pt., Level 3. * Procedure Codes:? * Sign off status: Completed true * Provider:?Hussein Harris MD Date:?2022 Generated for Robles bejarano/Lexi/Rachid on:?09/14/2024 05:11 PM EST History and Physical Notes * HPI (History of Present Illness) Category Sub-Category Detail Notes Category Not es Constitutional 04/22/23 Called requesting urgent visit Noticed BP has been high . Ran out of meds 2 weeks ago, Has been having headache 01/07/23 Has a new insurance Saw his Rekha yesterday Broke up business relatition with [employer] Every time he gets his exwives takes the property which belongs to both of them Compliat with his meds. Has 2 grandchildren #Sheree 2 yrs and Constantin 9 months, both from son Arjun. Lives in Sees them every weekend . Babysits them. Went to [facility] 2 months ago with brother Cristóbal. For 10 days Enjoyed his time visited family. 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 07/29/22 Came for follow up Discussed elevated LFTS Agrees to cut down on his alcohol . Sadia left today with [facility] for a small vacation . 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 pt states is working on it but she is on vacation for a week with her sisters he needs medication refills. no new complaints. has not taken medication in 4 days 10/14/21 Came to the office Before [place] a coworker was sick and he had Covid. He went and bought a Covid kit and tested positive and his younger brother Richie was positive Had one day of bodyache and sore throat Quarantined for 7 days. in house Drank wine Had Pfizer vaccine and booster before his infection. Has cut down drinking a lot. 80% Drinks beer/ wime 2-3 times a week. Work has been very busy. Has brother Richie and Enrique from [place] help him. Compliant with his medications. 10/14/21 Came to the office Before [place] a coworker was sick and he had Covid. He went and bought a Covid kit and tested positive and his younger brother Richie was positive Had one day of bodyache and sore throat Quarantined for 7 days. in house Drank wine Had Pfizer vaccine and booster before his infection. Has cut down drinking a lot. 80% Drinks beer/ wime 2-3 times a week. Work has been very busy. Has brother Richie and Enrique from [place] help him. Compliant with his medications. 07/10/21 Came to the office. Had colonoscopy with Dr Dorsey 07/08/21 Tics and IH . Also had EGD Erthematous fundi. Takes a smoothie with mirta vera, beets, brad, pine apple, fresh cabazon juice, honey, Linassa and water in magic Bullet Makes it for 3 days. 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 Compliant with his meds Not taking aspirin and cyclobenzaprine. Has his first grandson Sheree 10 months ald Loves spending time with him on weekends 03/18/21 Came to the office Brought Alcohol free [employer]! States he stopped alcohol for past [address] Carina Carey on 03/13/21 Has EGD on 03/31 and Colonoscopy 06/04/21 She told him to abstain from alcohol. eat fruits and vegetables, decrease red meat. Went to [facility] ED 2 weeks ago on 03/07/21 with right sided LBP . Marbelly drove him there. Had CT abdomen and labs . Given MS for pain Told it was muscle spasm Discharge on Cyclobenzaprine 10 mg #8 pills Told to take Tylenol 3 tablets three times as needed The pain persisted and is better for the first time Became a grandfather for first time BRENNON Hanson 09/09/21 . Son Radha son. Brother Loco has new insurance and wants to be a patient. 03/07/21 increasing worse right back pain over last few days, today it is very severe and he was going to go to the ER for the pain. denies any urinary symptoms. educated he needs imaging, denies having a hx of kidney stones or gall stones. Meds reviewed and reconciled
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
== END 2024-09-14 16:39 | disposition home or self-care (01) ==
PROVIDERS: PCP Internal Medicine; Visit Provider Nurse Practitioner Family
DX: R39.9 Unspecified symptoms and signs involving the genitourinary system (principal); R39.15 Urgency of urination; R35.0 Frequency of micturition; R35.1 Nocturia; N40.0 Benign prostatic hyperplasia without lower urinary tract symptoms; N32.89 Other specified disorders of bladder; Z13.9 Encounter for screening, unspecified
CPT/HCPCS: 99204

== ENCOUNTER → 2024-09-14 15:45 | Outpatient (BNVA) | payer OTHER, SELFPAY | PROVIDERS: PCP Internal Medicine; Visit Provider Nurse Practitioner Family | DX: N40.1 Benign prostatic hyperplasia with lower urinary tract symptoms (principal); R35.0 Frequency of micturition; R35.1 Nocturia; N32.89 Other specified disorders of bladder; N39.41 Urge incontinence; R33.8 Other retention of urine | CPT/HCPCS: 51798; 81003; 99202 ==

== ENCOUNTER 2024-10-26 08:13 | Emergency (ER) | payer OTHER, SELFPAY ==
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
[2024-10-26 08:31] VITALS: BP 180/100; PULSE 82; O2SAT 98
[2024-10-26 08:46] VITALS: BP 134/80; PULSE 75; RESP 18; TEMP 36.8; O2SAT 95; BMI 34.8
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
--- OUTSIDE RECORDS SUMMARY | 2024-10-26 09:31 | XMS_ITS | Encounter Summary ---
Author Organization [facility] Address [address] [place] [address] Phone Care Team Providers Care Camp Dishwasher Name Role Phone Gordo Denney MD Primary Care Provider [phone] Encounter Details Date Type Department Care Team (Late st Contact Info) Description 01/26/2023 Documentation Only [facility] [address] [place] [address] Hussein Harris MD [address] [place] [address] [address] [place], [place] [id number] Social History Tobacco Use Types Packs/Day Years Used Date Smoking Tobacco: Never Assessed Sex and Gender Information Value Date Recorded Sex Assigned at Not on file Legal Sex Male 4:59 PM EST Gender Identity Not on file Sexual Orientation Not on file documented as of this encounter Plan of Treatment Upcoming Encounters Date Type Department Care Team (Late st Contact Info) Description 08/13/2025 2:15 PM EST Office Visit [facility] [address] [place] [address] Faustino Cruz MD [address] [place] [address] [place] [phone] documented as of this encounter Visit Diagnoses Not on filedocumented in this encounter Care Teams Camp Dishwasher Relationship Specialty Start Date End Date Gordo Denney MD [address] [facility] [address] [place] [address] PCP - General Internal Medicine 08/30/23 documented as of this encounter
--- OUTSIDE RECORDS SUMMARY | 2024-10-26 09:31 | XMS_ITS | Encounter Summary ---
Author Organization [facility] Address [address] [place] [address] Phone Care Team Providers Care Hot Sealing Machine Operator Name Role Phone Gordo Denney MD Primary Care Provider [phone] Encounter Details Date Type Department Care Team (Late st Contact Info) Description 01/26/2023 Documentation Only [facility] [address] [place] [address] Hussein Harris MD [address] [place] [address] [address] [place], [place] [id number] Social History Tobacco Use Types Packs/Day Years [...] Visit [facility] [address] [place] [address] Faustino Cruz MD [address] [place] [address] [place] [phone] documented as of this encounter Visit Diagnoses Not on filedocumented in this encounter Care Teams Hot Sealing Machine Operator Relationship Specialty Start Date End Date Gordo Denney MD [address] [facility] [address] [place] [address] PCP - General Internal Medicine 08/30/23 documented as of this encounter
--- OUTSIDE RECORDS SUMMARY | 2024-10-26 09:31 | XMS_ITS | Clinical Summary ---
Author Organization [address] Address [address] [place] [address] Phone Care Team Providers Care Anthropologist Name Role Phone Gordo Denney MD Primary Care Provider [phone] Allergies No known active allergies Medications benazepril-hydroc hlorthiazide (LOTENSIN HCT) 10-12.5 mg per tablet Sig - Route: Take 1 tablet by mouth daily. - Oral Class: Historical Med 4 Active cholecalciferol (VITAMIN D-3) 25 mcg (1,000 unit) tablet Take by mouth. Activ e metoprolol succinate (TOPROL-XL) 25 mg 24 hr tablet Take 1 tablet (25 mg total) by mouth daily. Active mv-min/folic/K1/l ycopen/lutein (MEN 50 PLUS MULTIVITAMIN ORAL) Take by mouth. Activ e omeprazole (PriLOSEC) [address] capsule Take 1 capsule (20 mg total) by mouth 2 (two) times a day. 1 Active simvastatin (ZOCOR) 40 mg tablet TAKE 1 TABLET BY MOUTH EVERYDAY AT BEDTIME 90 tablet 1 4 Active Encounters Date Type Department Care Team Description 09/18/2024 3:00 PM EST Office Visit [facility] [place] [address] [place] [phone] Aureliano Connor PA Skin lesion of cheek (Primary Dx) 09/18/2024 Telephone Internal Medicine - [place] 175 [facility] [address] [place] [address] Gordo Denney MD from Last 3 Months Surgical History Surgery Date Site/Laterality Comments OTHER SURGICAL HISTORY 2006 PROCEDURE: HISTORY OTHER; COMMENT: endovenous ablation of vein Dr. Skinner CIRCUMCISION, PRIMARY 2014 PROCEDURE: HISTORICAL CIRCUMCISION; COMMENT: for phimoses Medical History Medical History Date Comments Hyperlipidemia 04/08/2021 DX:Hyperlipidemi a Essential hypertension 04/08/2021 DX:Essent ial hypertension Alcohol abuse 04/08/2021 DX:Alcohol abuse Severe obesity (BMI 35.0-39. 9) with comorbidity (CMS/HCC) 04/08/2021 DX:Severe obesity (BMI 35.0- 39.9) with comorbidity (HCC) Obstructive sleep apnea 04/08/2021 DX:Obstr uctive sleep apnea; COMMENT: CPAP Osteoarthritis of right knee 04/08/2021 DX: Osteoarthritis of right knee Psoriasis 04/08/2021 DX:Psoriasis; CO MMENT: Dr. Colten rodarte Anemia 03/13/2021 DX:Anemia Elevated AST (SGOT) 03/13/2021 DX:Elevated AST (SGOT) Erectile dysfunction 04/08/2021 DX:Erectile dysfunction Social History Tobacco Use Types Packs/Day Years Used Date Smoking Tobacco: Former Smokeless Tobacco: Never Alcohol Use Standard Drinks/Week Comments Yes 0 (1 standard drink = 0.6 oz pur e alcohol) Sex and Gender Information Value Date Recorded Sex Assigned at Not on file Legal Sex Male 10:08 AM EST Gender Identity Not on file Sexual Orientation Not on file Obstetrics History Last Filed Vital Signs Vital Sign Reading Time Taken Comments Blood Pressure 105/66 09/18/2024 3:31 PM EST Pulse 80 09/18/2024 3:31 PM EST Temperature 36.2 ??C (97.2 ??F) 09/18/2024 3:31 PM ES T Respiratory Rate - - Oxygen Saturation 96% 09/18/2024 3:31 PM EST Inhaled Oxygen Concentration - - Weight 108 kg (239 lb) 01/12/2024 1:04 PM EDT Height 175.3 cm (5' 9 ) 12/22/2023 3:11 PM EDT Body Mass Index 35.29 12/22/2023 3:11 PM EDT Plan of Treatment Upcoming Encounters Date Type Department Care Team (Late st Contact Info) Description 11/03/2024 11:45 AM EST Office Visit Internal Medicine - [place] 175 [facility] [address] [place] [address] Gordo Denney MD [address] [address] 01/11/2025 1:15 PM EDT Office Visit [facility] Hematology Oncology [address] [place] [phone] Priya Doherty PA [address] [place] [address] Health Maintenance Due Date Last Done Comments Hepatitis A Vaccines (1 of 2 - Risk 2-dose series) 1982 Pneumococcal Vaccine: 50+ Years (1 of 2 - PCV) 1982 Pneumococcal Vaccine: Pediatrics (0 to 5 Years) and At-Risk Patients (6 to 64 Years) (1 of 2 - PCV) 1982 Cholesterol Screening (Lipid Panel) 08/11/2022 Colorectal Cancer Screening: Colonoscopy 08/11/2022 Depression Screening 08/11/2022 HIV Screening 08/11/2022 Hepatitis C Screening 08/11/2022 Social Influencers of Health Screening 08/11/2022 RSV Immunization Patients 60 + Years Old (1 - Risk 60-74 years 1-dose series) 2023 Hepatitis B Vaccines (2 of 2 - CpG risk 2-dose series) 04/24/2024 03/27/2024 COVID-19 Vaccine (4 - 2023-2 5 season) 2024 07/14/2021, 12/20/2020, 11/29/2020 Influenza Vaccine (#1) 2024 Hypertension/CHF/CAD Annual BMP Blood Test 08/29/2025 08/29/2024 DTaP,Tdap,and Td Vaccines (2 - Td or Tdap) 02/15/2030 02/16/2020 Zoster Vaccines Completed 04/18/2024, 01/14/2024 HIB Vaccines Aged Out No longer eligi ble based on patient's age to complete this topic HPV Vaccines Aged Out No longer eligi ble based on patient's age to complete this topic IPV Vaccines Aged Out No longer eligi ble based on patient's age to complete this topic MMR Vaccines Aged Out No longer eligi ble based on patient's age to complete this topic Meningococcal ACWY Vaccine Aged Out N o longer eligible based on patient's age to complete this topic Meningococcal B Vacine Aged Out No lo nger eligible based on patient's age to complete this topic RSV Immunization Patients Under 20 months Aged Out No longer eligible b ased on patient's age to complete this topic Varicella Vaccines Aged Out No longer eligible based on patient's age to complete this topic Procedures Procedure Name Priority Date/Time Associated Diagnosis Comments CBC WITH AUTO DIFFERENTIAL Routine 08/29/2024 8:08 AM EST Persistent proteinuria, unspecified Nephrogenous proteinuria RENAL FUNCTION PANEL Routine 08/29/2024 8:08 AM EST Persistent proteinuria, unspecified Nephrogenous proteinuria CBC AND DIFFERENTIAL Routine 08/29/2024 8:08 AM EST Persistent proteinuria, unspecified Nephrogenous proteinuria PROTEIN AND CREATININE WITH RATIO, URINE Routine 08/29/2024 8:08 AM EST Persistent proteinuria, unspecified Nephrogenous proteinuria from Last 3 Months Results * (ABNORMAL) CBC auto differential (08/29/2024 8:08 AM EST) WBC 7.6 4.8 - 10.8 K/mcL LAB HEMETOLOGY METHOD 08/29/2024 10:14 AM [facility] RBC 5.10 4.50 - 5.50 M/mcL LAB HEMETOLOGY METHOD 08/29/2024 10:14 AM [facility] Hemoglobin 16.0 13.5 - 17.5 g/dL LAB HEMETOLOGY METHOD 08/29/2024 10:14 AM [facility] Hematocrit 48.4 42.0 - 54.0 % LAB HEMETOLOGY METHOD 08/29/2024 10:14 AM [facility] MCV 95.7 79.0 - 98.0 FL LAB HEMETOLOGY METHOD 08/29/2024 10:14 AM [facility] MCH 31.6 27.0 - 32.0 pcg LAB HEMETOLOGY METHOD 08/29/2024 10:14 AM [facility] MCHC 33.1 32.0 - 37.0 g/dL LAB HEMETOLOGY METHOD 08/29/2024 10:14 AM [facility] RDW 12.7 11.0 - 15.0 % LAB HEMETOLOGY METHOD 08/29/2024 10:14 AM [facility] Platelets 126(L) 130 - 400 K/mcL LAB HEMETOLOGY METHOD 08/29/2024 10:14 AM [facility] MPV 14.1(H) 7.0 - 11.0 FL LAB HEMETOLOGY METHOD 08/29/2024 10:14 AM [facility] NRBC 0.0 <1.0 % LAB HEMETOLOGY METHOD 08/29/2024 10:14 AM [facility] NRBC Absolute 0.00 <0.10 K/mcL LAB HEMETOLOGY METHOD 08/29/2024 10:14 AM [facility] Neutrophils Relative 51.3 % LAB HEMETOLOGY METHOD 08/29/2024 10:14 AM [facility] Lymphocytes Relative 34.4 % LAB HEMETOLOGY METHOD 08/29/2024 10:14 AM [facility] Monocytes Relative 9.0 % LAB HEMETOLOGY METHOD 08/29/2024 10:14 AM [facility] Eosinophils Relative 4.1 % LAB HEMETOLOGY METHOD 08/29/2024 10:14 AM [facility] Basophils Relative 0.9 % LAB HEMETOLOGY METHOD 08/29/2024 10:14 AM [facility] Immature Granulocytes Relative 0.3 % LAB HEMETOLOGY METHOD 08/29/2024 10:14 AM [facility] Neutrophils Absolute 3.87 1.50 - 7.00 K/mcL LAB HEMETOLOGY METHOD 08/29/2024 10:14 AM EST [facility] Lymphocytes Absolute 2.60 1.00 - 5.00 K/mcL LAB HEMETOLOGY METHOD 08/29/2024 10:14 AM EST [facility] Monocytes Absolute 0.68 0.20 - 1.00 K/mcL LAB HEMETOLOGY METHOD 08/29/2024 10:14 AM EST [facility] Eosinophils Absolute 0.31 0.00 - 0.50 K/mcL LAB HEMETOLOGY METHOD 08/29/2024 10:14 AM EST [facility] Basophils Absolute 0.07 0.00 - 0.20 K/mcL LAB HEMETOLOGY METHOD 08/29/2024 10:14 AM [facility] Immature Granulocytes Absolute 0.02 0.00 - 0.03 K/mcL LAB HEMETOLOGY METHOD 08/29/2024 10:14 AM [facility] Blood Venous blood specimen / Unknown Venipuncture / Unknown 08/29/2024 8:08 AM EST 08/29/2024 8:08 AM EST Faustino Cruz MD LAB BLOOD ORDERABLES Final Result [facility] [address] [place] [address], * Protein and creatinine with ratio, urine (08/29/2024 8:08 AM EST) Protein, Urine 20 mg/dL LAB CHEMISTRY METHOD 08/29/2024 10:20 AM [facility] Prot/Creat, Ur 0.08 <=0.20 mg/mg creat LAB CHEMISTRY METHOD 08/29/2024 10:20 AM [facility] Creatinine, Urine 247.0 mg/dL LAB CHEMISTRY METHOD 08/29/2024 10:20 AM [facility] Urine Urine specimen obtained by clean catch procedure / Unknown Non-blood Collection / Unknown 08/29/2024 8:08 AM EST 08/29/2024 8:08 AM EST us Faustino Cruz MD LAB URINE ORDERABLES Final Result [facility] [address] [place] [address], [place] [phone] * (ABNORMAL) Renal function panel (08/29/2024 8:08 AM EST) Sodium 140 133 - 145 mmol/L LAB CHEMISTRY METHOD 08/29/2024 10:04 AM [facility] Potassium 4.1 3.5 - 5.5 mmol/L LAB CHEMISTRY METHOD 08/29/2024 10:04 AM [facility] Chloride 106 96 - 110 mmol/L LAB CHEMISTRY METHOD 08/29/2024 10:04 AM [facility] CO2 27 21 - 32 mmol/L LAB CHEMISTRY METHOD 08/29/2024 10:04 AM [facility] Anion Gap 7 3 - 11 LAB CHEMISTRY METHOD 08/29/2024 10:04 AM [facility] Glucose 107(H) 70 - 100 mg/dL LAB CHEMISTRY METHOD 08/29/2024 10:04 AM [facility] BUN 21 5 - 25 mg/dL LAB CHEMISTRY METHOD 08/29/2024 10:04 AM [facility] Creatinine 1.17 0.70 - 1.30 mg/dL LAB CHEMISTRY METHOD 08/29/2024 10:04 AM [facility] eGFR 71 >=60 mL/min/1. 73m2 LAB CHEMISTRY METHOD 08/29/2024 10:04 AM [facility] Comment:Calculation based on the??Chronic Kidney Disease Epidemiology Collaboration (CKD-EPI) equation refit??without adjustment for race. BUN/Creatinine Ratio 17.9 LAB CHEMISTRY METHOD 08/29/2024 10:04 AM EST [facility] Albumin 4.1 3.2 - 5.0 g/dL LAB CHEMISTRY METHOD 08/29/2024 10:04 AM EST [facility] Calcium 9.5 8.5 - 10.5 mg/dL LAB CHEMISTRY METHOD 08/29/2024 10:04 AM [facility] Phosphorus 3.2 2.5 - 4.5 mg/dL LAB CHEMISTRY METHOD 08/29/2024 10:04 AM EST [facility] Blood Venous blood specimen / Unknown Venipuncture / Unknown 08/29/2024 8:08 AM EST 08/29/2024 8:08 AM EST Faustino Cruz MD LAB BLOOD ORDERABLES Final Result Performing Organization Address City/State/[facility] Co de Phone Number [facility] [address] [place] [address], from Last 3 Months Insurance [employer] Care Teams Anthropologist Relationship Specialty Start Date End Date Gordo Denney MD [address] [address] PCP - General 06/10/23
--- OUTSIDE RECORDS SUMMARY | 2024-10-26 09:32 | XMS_ITS | Encounter Summary ---
Author Organization [facility] Address [address] [place] [address] Care Team Providers Care Tile Installer Name Role Phone Gordo Denney MD Primary Care Provider [phone] Encounter Details Date Type Department Care Team ([facility] Contact Info) Description 09/18/2024 Telephone Internal Medicine [facility] [address] [phone] Gordo Denney MD [address] [address] Social History Tobacco Use Types Packs/Day Years [...] Encounters Date Type Department Care Team (Late Contact Info) Description 11/03/2024 11:45 AM EST Office Visit Internal Medicine [facility] [address] [phone] Gordo Denney MD [address] [address] 01/11/2025 1:15 PM EDT Office Visit [facility] Hematology Oncology [address] [place] [phone] Priya Doherty PA [address] [place] [address] documented as of this encounter Visit Diagnoses Not on filedocumented in this encounter Care Teams Tile Installer Relationship Specialty Start Date End Date Gordo Denney MD [address] [place] [address] PCP - General 06/10/23 documented as of this encounter
--- OUTSIDE RECORDS SUMMARY | 2024-10-26 09:32 | XMS_ITS | Clinical Summary ---
Author Organization [facility] Address [address] [place] [address] Care Team Providers Care Porter Bath Name Role Phone Gordo Denney MD Primary Care Provider Unavailab le Allergies No known active allergies Medications Medication Sig Dispensed Refills Start Date End Date Status omeprazole (PriLOSEC) 20 MG capsule Take 1 capsule (20 mg total) by mouth 2 (two) times a day. 0 Active simvastatin (ZOCOR) tablet 40 mg Take 1 tablet (40 mg total) by mouth every night at bedtime. 0 Active metoprolol succinate (TOPROL-XL) 24 hr tablet 25 mg Take 1 tablet (25 mg total) by mouth daily. 0 Active benazepril-hydroCHLORO thiazide (LOTENSIN HCT) 10-12.5 MG per tablet Take 1 tablet by mouth daily. 0 Active Cholecalciferol (Vitamin D) 25 MCG (1000 UT) TABS Take by mouth. 0 Active Multiple Vitamins-Minerals (Multivitamin Men 50+) TABS Take by mouth. 0 Active Family History Medical History Relation Name Comments Lung cancer Mother Relation Name Status Comments Mother Social History Tobacco Use Types Packs/Day Years Used Date Smoking Tobacco: Former Cigarettes Smokeless Tobacco: Never Comments:He quit smoking 15- 20 years ago Alcohol Use Standard Drinks/Week Comments Not Currently 0 (1 standard drink = 0.6 oz pure alcohol) Quit x 1 mo ago. Used to be a heavy drinker Sex and Gender Information Value Date Recorded Sex Assigned at Not on file Gender Identity Not on file Sexual Orientation Not on file Job Start Date Occupation Industry Not on file Not on file Not on file Last Filed Vital Signs Vital Sign Reading Time Taken Comments Blood Pressure 119/71 01/12/2024 1:04 PM EDT Pulse 83 01/12/2024 1:04 PM EDT Temperature 35.9 ??C (96.6 ??F) 01/12/2024 1:04 PM ED T Respiratory Rate - - Oxygen Saturation 97% 01/12/2024 1:04 PM EDT Inhaled Oxygen Concentration - - Weight 108.4 kg (239 lb) 01/12/2024 1:04 PM EDT Height 175.3 cm (5' 9 ) 06/17/2023 9:00 AM EDT Body Mass Index 35.29 06/17/2023 9:00 AM EDT Plan of Treatment Health Maintenance Due Date Last Done Comments Hepatitis C Screening 1965 COVID-19 Vaccine (#1) 01/06/1964 Pneumococcal Vaccine (1 of 2 - PCV) 1969 Depression Screening 1975 Preventative Health Evaluation 1981 Colon Cancer Screening (Colonoscopy) 2008 Shingrix-Zoster Vaccine (1 of 2) 2013 Influenza Vaccine (#1) 2024 DTap / Tdap / Td (2 - Td or Tdap) 02/15/2030 020 RSV Adult > 60+ Yrs or Pregn ant (1 - 1-dose 75+ series) 2038 Hepatitis B Vaccines Aged Out No long er eligible based on patient's age to complete this topic RSV Ped < 20 months Aged Out No longe r eligible based on patient's age to complete this topic Care Teams Porter Bath Relationship Specialty Start Date End Date Gordo Denney MD PCP - General Internal Medicine 06/10/23
--- OUTSIDE RECORDS SUMMARY | 2024-10-26 09:32 | XMS_ITS ---
Author Organization [facility] Address [address] [facility] [address] [place] [address] Care Team Providers Care Coffee Sampler Name Role Phone HUSSEIN LIEBERMAN Primary Care Provider REASON FOR VISIT Followup Encounters Encounter Location Date Provider Diagnosis [facility] [address] [facility] [address] [place] [address] 07/21/2023 HUSSEIN LIEBERMAN Plan Of Treatment No Information Progress Notes * Moncho ADAMSDOB: [birth year] (59 yo M)Acc No.[id number]:07/21/2023 Progress Notes Patient:?Moncho ADAMS Provider:?Hussein Lieberman MD :1965???Age:58 Y???Sex:Male Rocky e:07/21/2023 Address:[address] [place], [place] [id number] Subjective: * Chief Complaints: * ???1. Followup. * Medical History:? Objective: * Vitals:? Assessment: Plan: * Treatment: * Billing Information: * Visit Code:? * Procedure Codes:? * Electronic signature of KYLAH LIEBERMAN MD on 10/26/2024 at 09:32 AM EST Sign off status: Pending * Provider:?Hussein Lieberman MD Date:?2022 Generated for Robles bejarano/[email or web address]/[email or web address] on:?10/26/2024 09:32 AM EST
--- OUTSIDE RECORDS SUMMARY | 2024-10-26 09:32 | XMS_ITS | Encounter Summary ---
Author Organization [facility] Address [address] [place] [address] Phone Care Team Providers Care Associate Publisher Name Role Phone Gordo Denney MD Primary Care Provider [phone] Encounter Details Date Type Department Care Team (Late st Contact Info) Description 01/26/2023 Documentation Only [facility] [address] [place] [address] Hussein Harris MD [address] [place] [address] [address] [place], [place] [phone] Social History Tobacco Use Types Packs/Day Years [...] Visit [facility] [address] [place] [address] Faustino Cruz MD [address] [place] [address] [place] [phone] documented as of this encounter Visit Diagnoses Not on filedocumented in this encounter Care Teams Associate Publisher Relationship Specialty Start Date End Date Gordo Denney MD [address] [facility] [address] [place] [address] PCP - General Internal Medicine 08/30/23 documented as of this encounter
--- OUTSIDE RECORDS SUMMARY | 2024-10-26 09:32 | XMS_ITS | Clinical Summary ---
Author Organization [facility] Address [address] [place] [address] Phone Care Team Providers Care Building Construction Teacher Name Role Phone Gordo Denney MD Primary Care Provider Medications benazepril-hydr ochlorthiazide (LOTENSIN HCT) 10-12.5 MG per tablet Take 1 tablet by mouth 1 (one) time each day 07/21/2023 Active ferrous sulfate 325 (65 Fe) MG tablet Take 1 tablet by mouth 1 (one) time each day 07/21/2023 Active metoprolol succinate XL (TOPROL XL) 25 MG 24 hr tablet Take 25 mg by mouth 1 (one) time each day 07/21/2023 Active simvastatin (ZOCOR) 40 MG tablet Take 40 mg by mouth 1 (one) time each day in the evening 08/16/2023 Active Encounters Date Type Department Care Team Description 08/29/2024 Documentation Only [facility] [address] [place] [phone] Blaire Laboy [place] 08/21/2024 2:45 PM EST Office Visit [facility] [address] [place] [phone] Faustino Cruz MD Hypertension (Primary Dx); Other proteinuria from Last 3 Months Social History Tobacco Use Types Packs/Day Years Used Date Smoking Tobacco: Never Assessed Sex and Gender Information Value Date Recorded Sex Assigned at Not on file Legal Sex Male 4:59 PM EST Gender Identity Not on file Sexual Orientation Not on file Last Filed Vital Signs Vital Sign Reading Time Taken Comments Blood Pressure 120/68 08/21/2024 3:17 PM EST Pulse - - Temperature - - Respiratory Rate - - Oxygen Saturation - - Inhaled Oxygen Concentration - - Weight - - Height - - Body Mass Index - - Plan of Treatment Upcoming Encounters Date Type Department Care Team (Late st Contact Info) Description 08/13/2025 2:15 PM EST Office Visit [facility] [address] [place] [phone] Faustino Cruz MD [address] [place] [address] [place] [address] Health Maintenance Due Date Last Done Comments Pneumococcal Vaccine: Pediat rics (0 to 5 Years) and At-Risk Patients (6 to 64 Years) (1 of 2 - PCV) 1969 Colorectal Cancer Screening: Annual FOBT 2012 Colorectal Cancer Screening: Colonoscopy 2012 Colorectal Cancer Screening: Sigmoidoscopy 2012 Hepatitis B Vaccine (1 of 3 - Risk 3-dose series) 06/14 Influenza Vaccine (#1) 2024 Insurance MEDICAID Care Teams Building Construction Teacher Relationship Specialty Start Date End Date Gordo Denney MD [address] [place] [phone] PCP - General Internal Medicine 08/30/23
--- OUTSIDE RECORDS SUMMARY | 2024-10-26 09:32 | XMS_ITS | Encounter Summary ---
Author Organization [facility] Address [address] [address] Phone Care Team Providers Care Manager Social Responsibility Name Role Phone Gordo Denney MD Primary Care Provider [phone] Encounter Details Date Type Department Care Team (Late st Contact Info) Description 08/29/2024 Documentation Only [facility] [address] [place] [address] [place], [place] [address] [place] [phone] Social History Tobacco Use Types Packs/Day Years [...] Visit [facility] [address] [place] [address] Faustino Cruz MD [address] [place] [address] [place] [phone] documented as of this encounter Visit Diagnoses Not on filedocumented in this encounter Care Teams Manager Social Responsibility Relationship Specialty Start Date End Date Gordo Denney MD [address] [address] PCP - General Internal Medicine 08/30/23 documented as of this encounter
[2024-10-26 09:43] LABS: MANUAL DIFF FLAG NO
[2024-10-26 09:45] LABS: Basophils Absolute Auto 0.1 X10*3/uL (0.0-0.2); Basophils Percent Auto 1.1 % (0-2); Eosinophils Absolute Auto 0.2 X10*3/uL (0.0-0.4); Eosinophils Percent Auto 2.8 % (0-4); Hematocrit 43.1 % (42.0-52.0); Imm Gran Abs Auto 0.02 X10*3/uL (0.00-0.03); Imm Gran Pct Auto 0.4 % (0.0-0.4); Lymphocytes Absolute Auto 1.4 X10*3/uL (1.2-4.9); Lymphocytes Percent Auto 24.3 % (20-40); Mean Corpuscular HGB Conc 34.8 g/dl (31.0-36.0); Mean Corpuscular Hemoglobin 31.8 pg (27.0-33.0); Mean Corpuscular Volume 91.5 fL (80.0-98.0); Mean Platelet Volume 12.9 fL (9.4-12.4); Monocytes Absolute Auto 0.5 X10*3/uL (0.1-1.2); Monocytes Percent Auto 8.3 % (2-11); Neutrophils Absolute Auto 3.6 x10*3/uL (2.0-8.3); Neutrophils Percent Auto 63.1 % (45-73); Platelet Count 103 X10*3/uL (160-400); Red Blood Count 4.71 X10*6/uL (4.60-5.80); Red Cell Distribution Width 12.7 % (11.0-16.0); White Blood Count 5.7 X10*3/uL (4.8-10.8)
[2024-10-26 09:55] LABS: Partial Thromboplastin Time 34.3 SEC (26.0-36.8)
[2024-10-26 09:59] LABS: Alanine Aminotransferase 35 U/L (0-40); Alkaline Phosphatase 86 U/L (39-117); Anion Gap 12 (12-20); Aspartate Amino Transferase 36 U/L (5-37); Bilirubin Total 0.7 mg/dL (0.0-1.0); Blood Urea Nitrogen 15 mg/dL (9-16); Calcium 9.3 mg/dL (8.4-10.2); Carbon Dioxide 25 mmol/L (22-29); Chloride 106 mmol/L (96-108); Creatinine Clr Calc Pharmacy 131.7; Estimated Glomerular Filt Rate > 60; Glucose Random 132 mg/dL (60-115); Lipase 36 U/L (8-78); Potassium 3.9 mmol/L (3.3-5.1); Sodium 139 mmol/L (135-145); Total Protein 7.7 g/dL (6.5-8.0)
[2024-10-26 10:00] VITALS: BP 122/69; PULSE 66; RESP 16; TEMP 37.1; O2SAT 95
[2024-10-26 10:06] LABS: Troponin-I High Sensitivity 2.8 ng/L (<3.5-35.0)
[2024-10-26] MEDS: Ibuprofen 400 MG TABLET PO (10:09)
[2024-10-26 11:04] LABS: Influenza A PCR NEGATIVE (Negative); Influenza B PCR NEGATIVE (Negative); Resp Syncy Virus RNA Qual PCR NEGATIVE (Negative); SARS COV2 PCR INHOUSE NEGATIVE (Negative)
[2024-10-26 12:00] VITALS: BP 134/80; PULSE 68; RESP 18; TEMP 36.4; O2SAT 94
[2024-10-26 14:47] VITALS: BP 134/80; PULSE 68; RESP 18; TEMP 36.4; O2SAT 94
== END 2024-10-26 14:47 | disposition home or self-care (01) ==
PROVIDERS: Emergency Provider Emergency Medicine Emergency Medical Services; PCP Internal Medicine
DX: S20.212A Contusion of left front wall of thorax, initial encounter (principal); S13.9XXA Sprain of joints and ligaments of unspecified parts of neck, initial encounter; S29.9XXA Unspecified injury of thorax, initial encounter; I48.91 Unspecified atrial fibrillation; I10 Essential (primary) hypertension; E78.5 Hyperlipidemia, unspecified; K70.30 Alcoholic cirrhosis of liver without ascites; R07.89 Other chest pain; V58.5XXA Driver of pick-up truck or van injured in noncollision transport accident in traffic accident, initial encounter; Y93.89 Activity, other specified; Y92.488 Other paved roadways as the place of occurrence of the external cause; Y99.8 Other external cause status; Z03.818 Encounter for observation for suspected exposure to other biological agents ruled out; Z79.899 Other long term (current) drug therapy; Z87.891 Personal history of nicotine dependence
CPT/HCPCS: 0241U; 36415; 71046; 80053; 83690; 84484; 85025; 85730; 93005; 99283; 99284

== ENCOUNTER → 2024-10-26 08:46 | Outpatient (BNV) | payer OTHER, SELFPAY | PROVIDERS: Emergency Provider Emergency Medicine Emergency Medical Services; PCP Internal Medicine; Visit Provider Internal Medicine Cardiovascular Disease | DX: I48.91 Unspecified atrial fibrillation (principal); R94.31 Abnormal electrocardiogram [ECG] [EKG]; Z04.3 Encounter for examination and observation following other accident | CPT/HCPCS: 93010 ==

== ENCOUNTER → 2024-10-26 09:22 | Outpatient (BNV) | payer OTHER, SELFPAY | PROVIDERS: Emergency Provider Emergency Medicine Emergency Medical Services; PCP Internal Medicine; Visit Provider Radiology Diagnostic Radiology | DX: R07.89 Other chest pain (principal); Z04.3 Encounter for examination and observation following other accident | CPT/HCPCS: 71046 ==

== ENCOUNTER 2024-11-08 08:09 | Outpatient (REF) | payer OTHER, SELFPAY ==
--- OUTSIDE RECORDS SUMMARY | 2024-11-08 08:29 | XMS_ITS | Encounter Summary ---
Author Organization [facility] Address [address] [address] Phone Care Team Providers Care Top Former Name Role Phone Gordo Denney MD Primary Care Provider [phone] Encounter Details Date Type Department Care Team (Late st Contact Info) Description 08/29/2024 Documentation Only [facility] [address] [place] [address] [place], [place] [address] [place] [phone] Social History Tobacco Use Types Packs/Day Years [...] Visit [facility] [address] [place] [address] Faustino Cruz MD [address] [place] [address] [place] [phone] documented as of this encounter Visit Diagnoses Not on filedocumented in this encounter Care Teams Top Former Relationship Specialty Start Date End Date Gordo Denney MD [address] [address] PCP - General Internal Medicine 08/30/23 documented as of this encounter
--- OUTSIDE RECORDS SUMMARY | 2024-11-08 08:29 | XMS_ITS | Clinical Summary ---
Author Organization [address] Address [address] [place] [address] Phone Care Team Providers Care Housekeeping Lead Name Role Phone Gordo Denney MD Primary Care Provider [phone] Allergies No known active allergies Medications benazepril-hydroc [...] PM EST Office Visit [facility] [place] [address] [place] [phone] Aureliano Connor PA Skin lesion of cheek (Primary Dx) 09/18/2024 Telephone Internal [facility] [place] [address] [facility] [address] [place] [address] Gordo Denney MD from Last [...] Care Team (Late st Contact Info) Description 11/10/2024 8:30 AM EST Office Visit [facility] [place] [address] [facility] [address] [place] [address] Gordo Denney MD [address] [address] 12/06/2024 8:45 AM EDT Office Visit [facility] [place] [address] [phone] Gordo Denney MD [address] [address] 01/11/2025 1:15 PM EDT Office Visit [facility] Hematology Oncology [address] [place] [phone] Priya Doherty PA [address] [place] [address] Health Maintenance Due Date Last Done Comments [...] LAB HEMETOLOGY METHOD 08/29/2024 10:14 AM EST [facility] RBC 5.10 4.50 - 5.50 M/mcL LAB HEMETOLOGY METHOD 08/29/2024 10:14 AM EST [facility] Hemoglobin 16.0 13.5 - 17.5 g/dL LAB HEMETOLOGY METHOD 08/29/2024 10:14 AM EST [facility] Hematocrit 48.4 42.0 - 54.0 % LAB HEMETOLOGY METHOD 08/29/2024 10:14 AM [facility] MCV 95.7 79.0 - 98.0 FL LAB HEMETOLOGY METHOD 08/29/2024 10:14 AM [facility] MCH 31.6 27.0 - 32.0 pcg LAB HEMETOLOGY METHOD 08/29/2024 10:14 AM [facility] MCHC 33.1 32.0 - 37.0 g/dL LAB HEMETOLOGY METHOD 08/29/2024 10:14 AM [facility] RDW 12.7 11.0 - 15.0 % LAB HEMETOLOGY METHOD 08/29/2024 10:14 AM [facility] Platelets 126(L) 130 - 400 K/mcL LAB HEMETOLOGY METHOD 08/29/2024 10:14 AM [facility] MPV 14.1(H) 7.0 - 11.0 FL LAB HEMETOLOGY METHOD 08/29/2024 10:14 AM [facility] NRBC 0.0 <1.0 % LAB HEMETOLOGY METHOD 08/29/2024 10:14 AM [facility] NRBC Absolute 0.00 <0.10 K/mcL LAB HEMETOLOGY METHOD 08/29/2024 10:14 AM [facility] Neutrophils Relative 51.3 % LAB HEMETOLOGY METHOD 08/29/2024 10:14 AM [facility] Lymphocytes Relative 34.4 % LAB HEMETOLOGY METHOD 08/29/2024 10:14 AM [facility] Monocytes Relative 9.0 % LAB HEMETOLOGY METHOD 08/29/2024 10:14 AM [facility] Eosinophils Relative 4.1 % LAB HEMETOLOGY METHOD 08/29/2024 10:14 AM [facility] Basophils Relative 0.9 % LAB HEMETOLOGY METHOD 08/29/2024 10:14 AM EST [facility] Immature Granulocytes Relative 0.3 % LAB HEMETOLOGY METHOD 08/29/2024 10:14 AM EST [facility] Neutrophils Absolute 3.87 1.50 - 7.00 K/mcL LAB HEMETOLOGY METHOD 08/29/2024 10:14 AM EST [facility] Lymphocytes Absolute 2.60 1.00 - 5.00 K/mcL LAB HEMETOLOGY METHOD 08/29/2024 10:14 AM EST [facility] Monocytes Absolute 0.68 0.20 - 1.00 K/mcL LAB HEMETOLOGY METHOD 08/29/2024 10:14 AM EST [facility] Eosinophils Absolute 0.31 0.00 - 0.50 K/mcL LAB HEMETOLOGY METHOD 08/29/2024 10:14 AM EST [facility] Basophils Absolute 0.07 0.00 - 0.20 K/mcL LAB HEMETOLOGY METHOD 08/29/2024 10:14 AM [facility] Immature Granulocytes Absolute 0.02 0.00 - 0.03 K/mcL LAB HEMETOLOGY METHOD 08/29/2024 10:14 AM [facility] Blood Venous blood specimen / Unknown Venipuncture / Unknown 08/29/2024 8:08 AM EST 08/29/2024 8:08 AM EST us Faustino Cruz MD LAB BLOOD ORDERABLES Final Result [facility] [address] [place] [address], * Protein and creatinine with ratio, urine (08/29/2024 8:08 AM EST) Protein, Urine 20 mg/dL LAB CHEMISTRY METHOD 08/29/2024 10:20 AM EST [facility] Prot/Creat, Ur 0.08 <=0.20 mg/mg creat LAB CHEMISTRY METHOD 08/29/2024 10:20 AM [facility] Creatinine, Urine 247.0 mg/dL LAB CHEMISTRY METHOD 08/29/2024 10:20 AM [facility] Urine Urine specimen obtained by clean catch procedure / Unknown Non-blood Collection / Unknown 08/29/2024 8:08 AM EST 08/29/2024 8:08 AM EST us Faustino Cruz MD LAB URINE ORDERABLES Final Result [facility] [address] [place] [address], * (ABNORMAL) Renal function panel (08/29/2024 8:08 AM EST) Sodium 140 133 - 145 mmol/L LAB CHEMISTRY METHOD 08/29/2024 10:04 AM [facility] Potassium 4.1 3.5 - 5.5 mmol/L LAB CHEMISTRY METHOD 08/29/2024 10:04 AM [facility] Chloride 106 96 - 110 mmol/L LAB CHEMISTRY METHOD 08/29/2024 10:04 AM [facility] CO2 27 21 - 32 mmol/L LAB CHEMISTRY METHOD 08/29/2024 10:04 AM [facility] Anion Gap 7 3 - 11 LAB CHEMISTRY METHOD 08/29/2024 10:04 AM [facility] Glucose 107(H) 70 - 100 mg/dL LAB CHEMISTRY METHOD 08/29/2024 10:04 AM [facility] BUN 21 5 - 25 mg/dL LAB CHEMISTRY METHOD 08/29/2024 10:04 AM [facility] Creatinine 1.17 0.70 - 1.30 mg/dL LAB CHEMISTRY METHOD 08/29/2024 10:04 AM [facility] eGFR 71 >=60 mL/min/1. 73m2 LAB CHEMISTRY METHOD 08/29/2024 10:04 AM EST [facility] Comment:Calculation based on the??Chronic Kidney Disease Epidemiology Collaboration (CKD-EPI) equation refit??without adjustment for race. BUN/Creatinine Ratio 17.9 LAB CHEMISTRY METHOD 08/29/2024 10:04 AM EST [facility] Albumin 4.1 3.2 - 5.0 g/dL LAB CHEMISTRY METHOD 08/29/2024 10:04 AM EST [facility] Calcium 9.5 8.5 - 10.5 mg/dL LAB CHEMISTRY METHOD 08/29/2024 10:04 AM [facility] Phosphorus 3.2 2.5 - 4.5 mg/dL LAB CHEMISTRY METHOD 08/29/2024 10:04 AM [facility] Blood Venous blood specimen / Unknown Venipuncture / Unknown 08/29/2024 8:08 AM EST 08/29/2024 8:08 AM EST Faustino Cruz MD LAB BLOOD ORDERABLES Final Result [facility] [address] [place] [address], from Last [address] [place] [address] [employer] Care Teams Housekeeping Lead Relationship Specialty Start Date End Date Gordo Denney MD [address] [place] [address] PCP - General 06/10/23
--- OUTSIDE RECORDS SUMMARY | 2024-11-08 08:29 | XMS_ITS | Encounter Summary ---
Author Organization [facility] Address [address] [place] [address] Phone Care Team Providers Care Research Instructor Name Role Phone Gordo Denney MD Primary Care Provider [phone] Encounter Details Date Type Department Care Team (Late st Contact Info) Description 01/26/2023 Documentation Only [facility] [address] [place] [place] [address] Hussein Harris MD [address] [place] [address] [address] [place], [place] [phone] Social History Tobacco Use Types Packs/Day Years [...] Visit [facility] [address] [place] [address] Faustino Cruz MD [address] [place] [address] [place] [phone] documented as of this encounter Visit Diagnoses Not on filedocumented in this encounter Care Teams Research Instructor Relationship Specialty Start Date End Date Godro Denney MD 175 [facility] [address] [place] [address] PCP - General Internal Medicine 08/30/23 documented as of this encounter
--- OUTSIDE RECORDS SUMMARY | 2024-11-08 08:29 | XMS_ITS | Encounter Summary ---
Author Organization [facility] Address [address] [place] [address] Phone Care Team Providers Care Residential Housekeeper Name Role Phone Gordo Denney MD Primary Care Provider [phone] Encounter Details Date Type Department Care Team (Late st Contact Info) Description 01/26/2023 Documentation Only [facility] [address] [place] [address] Hussein Harris MD [address] [place] [address] [address] [place], [place] [phone] Social History Tobacco Use Types Packs/Day Years [...] Visit [facility] [address] [place] [address] Faustino Cruz MD [address] [place] [address] [place] [phone] documented as of this encounter Visit Diagnoses Not on filedocumented in this encounter Care Teams Residential Housekeeper Relationship Specialty Start Date End Date Gordo Denney MD 175 [facility] [address] [place] [address] PCP - General Internal Medicine 08/30/23 documented as of this encounter
--- OUTSIDE RECORDS SUMMARY | 2024-11-08 08:29 | XMS_ITS | Encounter Summary ---
Author Organization [facility] Address [address] [place] [address] Phone Care Team Providers Care Stove Carriage Operator Name Role Phone Gordo Denney MD Primary Care Provider [phone] Encounter Details Date Type Department Care Team (Late st Contact Info) Description 01/26/2023 Documentation Only [facility] [address] [place] [address] Hussein Harris MD [address] [place] [address] [address] [place], [place] [phone] Social History Tobacco Use Types Packs/Day Years [...] Visit [facility] [address] [place] [address] Faustino Cruz MD [address] [place] [address] [place] [phone] documented as of this encounter Visit Diagnoses Not on filedocumented in this encounter Care Teams Stove Carriage Operator Relationship Specialty Start Date End Date Gordo Denney MD 175 [facility] 200 [place] [address] PCP - General Internal Medicine 08/30/23 documented as of this encounter
--- OUTSIDE RECORDS SUMMARY | 2024-11-08 08:29 | XMS_ITS | Clinical Summary ---
Author Organization [facility] Address [address] [place] [address] Care Team Providers Care Piano Tuner Name Role Phone Gordo Denney MD Primary [...] age to complete this topic Care Teams Piano Tuner Relationship Specialty Start Date End Date Gordo Denney MD PCP - General Internal Medicine 06/10/23
--- OUTSIDE RECORDS SUMMARY | 2024-11-08 08:29 | XMS_ITS | Clinical Summary ---
Author Organization [facility] [address] [address] Phone Care Team Providers Care Personal Assistant Name Role Phone Gordo Denney MD Primary Care Provider [phone] Medications benazepril-hydr ochlorthiazide (LOTENSIN HCT) 10-12.5 MG [...] Only [facility] [address] [place] [phone] Blaire Laboy [place] 08/21/2024 2:45 PM EST Office Visit [facility] [address] [place] [phone] Faustino Cruz MD Hypertension (Primary Dx); Other [...] Visit [facility] [address] [place] [phone] Faustino Cruz MD [address] [place] [address] [place] [address] Health Maintenance Due Date Last [...] Vaccine (#1) 2024 Insurance MEDICAID Care Teams Personal Assistant Relationship Specialty Start Date End Date Gordo Denney MD [address] [place] [phone] PCP - General Internal Medicine 08/30/23
--- OUTSIDE RECORDS SUMMARY | 2024-11-08 08:29 | XMS_ITS | Encounter Summary ---
Author Organization [facility] Address [address] [place] [address] Care Team Providers Care Sales Apprentice Name Role Phone Gordo Denney MD Primary Care Provider [phone] Encounter Details Date Type Department Care Team ([facility] Contact Info) Description 09/18/2024 Telephone Internal Medicine [facility] [address] [phone] Gordo Denney MD [address] [address] Social History Tobacco Use Types Packs/Day Years [...] Department Care Team (Late Contact Info) Description 11/10/2024 8:30 AM EST Office Visit Internal Medicine [address] [phone] Gordo Denney MD [address] [address] 12/06/2024 8:45 AM EDT Office Visit Internal [facility] [address] [phone] Gordo Denney MD [address] [address] 01/11/2025 1:15 PM EDT Office Visit [facility] Hematology Oncology [address] [place] [phone] Priya Doherty PA [address] [place] [address] documented as of this encounter Visit Diagnoses Not on filedocumented in this encounter Care Teams Sales Apprentice Relationship Specialty Start Date End Date Gordo Denney MD [address] [address] PCP - General 06/10/23 documented as of this encounter
[2024-11-08 10:58] LABS: Prostate Specific Antigen 2.07 ng/mL (<0.05-4.0)
== END 2024-11-08 08:10 | disposition home or self-care (01) ==
LOC: HO.10HDL 08:09
PROVIDERS: Visit Provider Nurse Practitioner Family
DX: N40.1 Benign prostatic hyperplasia with lower urinary tract symptoms (principal); R39.9 Unspecified symptoms and signs involving the genitourinary system; R35.1 Nocturia; R35.0 Frequency of micturition; R39.15 Urgency of urination; R68.89 Other general symptoms and signs; N32.89 Other specified disorders of bladder; Z12.5 Encounter for screening for malignant neoplasm of prostate; Z79.899 Other long term (current) drug therapy
CPT/HCPCS: 36415; 81003; 84153; 99212

== ENCOUNTER 2024-11-08 14:20 | Outpatient (AMB) | payer OTHER, SELFPAY ==
--- NOTE | 2024-11-08 14:22 | A.OFFVIS_ITS ---
Intake Visit Reasons: 2m with PSA/PVR Intake Note: Patient presents for follow up visit for BPH, frequency, PSA lab results Urology Medications: none Blood Thinner: none PVR: 25ml's Radiologic Electronic Specialist Required: No Accompanied by: Self / Same As Patient Allergies No Known Allergies Allergy (Verified 11/08/24 14:25) HPI Comments Details: Moncho is a pleasant 59-year-old male patient of Dr. Denney. He has a past medical history of hypertension and hyperlipidemia. He presents to the office today for a follow up. Of note patient was seen approximately 6 weeks ago as a new patient for ongoing lower urinary tract symptoms at which time a PSA was ordered for further assessment evaluation. These results reviewed with the patient today. 11/07 2.1. In discussion with the patient today he reports significant improvement in lower urinary tract symptoms he had been experiencing with daily dosing of Flomax as prescribed. In office urinalysis results rev iewed with the patient today. PVR 25 mL. Previous workup has included CT of the abdomen. 08/06 bilateral kidneys are normal in size, shape, and attenuation. No hydronephrosis, hydroureter, or calculi seen bilaterally. No perinephric stranding. There is a 9 mm hypodensity posterior cortex mid pole left kidney, indeterminate. The bladder is nondistended. Moderate prostate enlargement with mild bladder wall thickening. Slightly heterogeneous anterior prostate gland. He discusses noting ongoing issues with libido and obtaining and maintaining his erections. We discussed lifestyle modifications to assist with this urological issue. We also discussed obtaining testosterone for further assessment evaluation. He denies incontinence, hematuria, dysuria, foul smelling urine, changes to urinary stream, flank pain, fever, and or chills. He does continue to report urinary urgency, urinary frequency, and episodes of nocturia however feels these are significantly improved and manageable at this time. He is happy with his current voiding parameters. He otherwise offers no other issues or concerns at this time. PENDING SALE TO [facility] Surgical History H/O esophagogastroduodenoscopy H/O colonoscopy H/O circumcision Status post laser ablation of incompetent vein Social History Household Members: Spouse Alcohol intake: current Patient Tobacco Use Status: Former Tobacco user Review of Systems Const All systems reviewed & are unremarkable except as noted in HPI and below Physical Exam Const General: cooperative, healthy appearing, comfortable, no acute distress, well developed, alert and awake Nutritional Appearance: overweight Orientation/consciousness: patient oriented x3 Limitations: no limitations HEENT Head: Yes normal to inspection, Yes normocephalic and Yes atraumatic Ears: hearing grossly normal bilaterally Eyes General: appearance normal, both eyes and all related structures Neck Neck: Yes normal visual inspection and Yes trachea midline Chest Chest palpation & inspection: normal inspection of the chest Resp Effort & Inspection: normal respiratory effort and able to speak in complete sentences Cardio Rate: regular rate GI Inspection: Yes normal to inspection General: Yes no CVA tenderness Back/Spine/Pelvis Back: no CVA tenderness Skin General skin exam: no rashes or lesions noted Neuro General: patient oriented x3 Extrem General: Yes normal to inspection Psych Appearance: grossly normal and well kempt Mental Status: mental status grossly normal Speech and movement: Normal speech and movement present and Clear speech present Affect: normal affect Attitude: cooperative Thought process: Normal thought process present Thought content: Normal thought content present Insight: Fair insight present (Psych) Judgement: Fair judgement present (Psych) Results AMB Urinalysis, Automated UA Leukoctes 0 Gualberto/uL Last Edit by Negrita Fuchs on 11/08/24 14:35 UA Nitrite Negative Last Edit by Negirta Fuchs on 11/08/24 14:35 UA Urobilinogen 0.2 mg/dL Last Edit by Negrita Fuchs on 11/08/24 14:35 UA Protein 15 mg/dL Last Edit by Negrita Fuchs on 11/08/24 14:35 UA pH 5.5 Last Edit by Negrita Fuchs on 11/08/24 14:35 UA Blood 0 Tom/uL Last Edit by Negrita Fuchs on 11/08/24 14:35 UA Specific Mccleary 1.020 Last Edit by Negrita Fuchs on 11/08/24 14:35 UA Ketone Negative Last Edit by Negrita Fuchs on 11/08/24 14:35 UA Bilirubin 0 mg/dL Last Edit by Negrita Fuchs on 11/08/24 14:35 UA Glucose 0 mg/dL Last Edit by Negrita Fuchs on 11/08/24 14:35 Results Reviewed Results Reviewed: Laboratory Last Values Urine pH (Auto) 5.5 11/08/24 14:21 Specific Mccleary (Auto) 1.020 11/08/24 14:21 Urine Protein (Auto) 15 mg/dL 11/08/24 14:21 Glucose (UA)(Auto) 0 mg/dL 11/08/24 14:21 Urine Ketones (Auto) Negative 11/08/24 14:21 Urine Blood (Auto) 0 Tom/uL 11/08/24 14:21 Urine Nitrite (Auto) Negative 11/08/24 14:21 Urine Bilirubin (Auto) 0 mg/dL 11/08/24 14:21 Urine Urobilinogen (Auto) 0.2 mg/dL 11/08/24 14:21 Leukocyte Esterase (Auto) 0 Gualberto/uL 11/08/24 14:21 Assessment & Plan Assessment & Plan (1) Low libido: Code(s): R68.82 - Decreased libido Category: Medical (2) Bladder wall thickening: Code(s): N32.89 - Other specified disorders of bladder Category: Medical (3) Enlarged prostate: Code(s): N40.0 - Benign prostatic hyperplasia without lower urinary tract symptoms Category: Medical (4) Nocturia: Code(s): R35.1 - Nocturia Category: Medical (5) Urinary frequency: Code(s): R35.0 - Frequency of micturition Category: Medical (6) Urinary urgency: Code(s): R39.15 - Urgency of urination Category: Medical (7) Lower urinary tract symptoms: Code(s): R39.9 - Unspecified symptoms and signs involving the genitourinary system Category: Medical Plan In office urinalysis results reviewed the patient today; as noted above. PVR 25 mL. Recent PSA results reviewed with the patient today; as noted above. Continue Flomax as discussed and prescribed. Start Cialis as discussed and prescribed. Will obtain testosterone free and total for further assessment evaluation. We discussed bladder triggers/irritants. We discussed lifestyle modifications to assist with low libido and erectile dysfunction. Follow-up in 1-3 months with lab to be completed prior and PVR at next office visit; or sooner with any issues, concerns, and or questions. Orders: Orders AMB Urinalysis Automated Today Z13.9 - Encounter for screening, unspecified AMB Post Void Residual by ultrasound Today N40.0 - Benign prostatic hyperplasia without lower urinary tract symptoms Testosterone, Free/Total Today R68.82 - Decreased libido Medications: New tadalafil (Cialis) NOE [facility] Group [facility] DR33 [id number] 5 mg PO DAILY 90 days 90 tabs 0RF Patient Instructions: The patient had an opportunity to ask questions regarding the treatment plan. All questions were answered. Physical exam, labs, and imaging were discussed and reviewed in detail. As well as risks, benefits, and discussion of treatment choices. No major barriers to understanding were identified. The patient expressed understanding and agreement with the above treatment plan. The patient was made aware they should contact our office by phone for worsening of their current condition, the appearance of new symptoms, or with any questions or concerns. Compliance is encouraged with any medications and follow up testing that is ordered. It is a privilege to be allowed the opportunity to participate in? your urological care.? Again, if you have any questions or c oncerns If you have any questions or concerns please do not hesitate to contact me. The office is [phone]. This note is constructed using voice recognition software. While every effort has been made to ensure accuracy laborer rags errors may have been included. Yours sincerely, LEANNA Alexander Coding Level of Care Code Est Pt Level 4 (13291) Diagnoses Low libido R68.82 Bladder wall thickening N32.89 Enlarged prostate N40.0 Nocturia R35.1 Urinary frequency R35.0 Urinary urgency R39.15 Lower urinary tract symptoms R39.9
--- OUTSIDE RECORDS SUMMARY | 2024-11-08 17:45 | XMS_ITS | Encounter Summary ---
Author Organization [facility] Address [address] [place] [address] Phone Care Team Providers Care Ruby Developer Name Role Phone Gordo Denney MD Primary Care Provider [phone] Encounter Details Date Type Department Care Team (Late st Contact Info) Description 01/26/2023 Documentation Only [facility] [address] [place] [address] Hussein Harris MD [address] [place] [address] [address] [place], [place] [phone] Social History Tobacco Use Types Packs/Day Years [...] Visit [facility] [address] [place] [address] Faustino Cruz MD [address] [place] [address] [place] [phone] documented as of this encounter Visit Diagnoses Not on filedocumented in this encounter Care Teams Ruby Developer Relationship Specialty Start Date End Date Gordo Denney MD 175 [facility] 200 [place] [address] PCP - General Internal Medicine 08/30/23 documented as of this encounter
--- OUTSIDE RECORDS SUMMARY | 2024-11-08 17:45 | XMS_ITS ---
Author Organization [facility] Address [address] [facility] [address] [place] [address] Care Team Providers Care Internet Marketing Manager Name Role Phone HUSSEIN LIEBERMAN Primary Care Provider [phone] REASON FOR VISIT Followup Encounters Encounter Location Date Provider Diagnosis [facility] [address] [place] [address] 07/21/2023 HUSSEIN LIEBERMAN Plan Of Treatment No Information Progress Notes * Moncho ADAMSDOB: [birth year] (59 yo M)Acc No.[id number]:07/21/2023 Progress Notes Patient:?Moncho ADAMS Provider:?Hussein Lieberman MD :1965???Age:58 Y???Sex:Male Rocky e:07/21/2023 Address:[address] [place], [place] [id number] Subjective: * Chief Complaints: * ???1. Followup. * Medical History:? Objective: * Vitals:? Assessment: Plan: * Treatment: * Billing Information: * Visit Code:? * Procedure Codes:? * Electronic signature of KYLAH LIEBERMAN MD on 11/08/2024 at 05:45 PM EST Sign off status: Pending * Provider:?Hussein Lieberman MD Date:?2022 Generated for Robles bejarano/Lexi/Inocenciasmitting on:?11/08/2024 05:45 PM EST
--- OUTSIDE RECORDS SUMMARY | 2024-11-08 17:45 | XMS_ITS | Encounter Summary ---
Author Organization [facility] Address [address] [place] [address] Phone Care Team Providers Care Ambulance Driver Name Role Phone Gordo Denney MD Primary Care Provider [phone] Encounter Details Date Type Department Care Team (Late st Contact Info) Description 01/26/2023 Documentation Only [facility] [address] [place] [address] Hussein Harris MD [address] [place] [address] [address] [place], [place] [id number] Social History Tobacco Use Types Packs/Day Years [...] Visit [facility] [address] [place] [address] Faustino Cruz MD [address] [place] [address] [place] [phone] documented as of this encounter Visit Diagnoses Not on filedocumented in this encounter Care Teams Ambulance Driver Relationship Specialty Start Date End Date Gordo Denney MD [address] [facility] 200 [place] [address] PCP - General Internal Medicine 08/30/23 documented as of this encounter
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
--- OUTSIDE RECORDS SUMMARY | 2024-11-08 17:45 | XMS_ITS | Encounter Summary ---
Author Organization [facility] Address [address] [place] [address] Phone Care Team Providers Care Harness Cleaner Name Role Phone Gordo Denney MD Primary Care Provider Encounter Details Date Type Department Care Team (Late st Contact Info) Description 01/26/2023 Documentation Only [facility] [address] [place] [address] Hussein Harris MD [address] [place] [address] [address] [place], [place] [id number] Social History Tobacco Use Types Packs/Day Years [...] Visit [facility] [address] [place] [address] Faustino Cruz MD [address] [place] [address] [place] [phone] documented as of this encounter Visit Diagnoses Not on filedocumented in this encounter Care Teams Harness Cleaner Relationship Specialty Start Date End Date Gordo Denney MD 175 [facility] 200 [place] [address] PCP - General Internal Medicine 08/30/23 documented as of this encounter
--- OUTSIDE RECORDS SUMMARY | 2024-11-08 17:45 | XMS_ITS | Clinical Summary ---
Author Organization [facility] Address [address] [place] [address] Care Team Providers Care Title Closer Name Role Phone Gordo Denney MD Primary [...] age to complete this topic Care Teams Title Closer Relationship Specialty Start Date End Date Gordo Denney MD PCP - General Internal Medicine 06/10/23
--- OUTSIDE RECORDS SUMMARY | 2024-11-08 17:45 | XMS_ITS | Clinical Summary ---
Author Organization [address] Address [address] [place] [address] Phone Care Team Providers Care Wafer Cleaner Name Role Phone Gordo Denney MD Primary Care Provider [phone] Allergies No known active allergies Medications benazepril-hydroc [...] PM EST Office Visit [facility] [place] [address] [place] [phone] Aureliano Connor PA Skin lesion of cheek (Primary Dx) 09/18/2024 Telephone Internal Medicine - [place] [address] [facility] [address] [place] [address] Gordo Denney MD from Last [...] AM EST Office Visit [facility] [place] [address] [facility] [address] [place] [address] Gordo Denney MD [address] [address] 12/06/2024 8:45 AM EDT Office Visit [facility] [place] [address] [phone] Gordo Denney MD [address] [address] 01/11/2025 1:15 PM EDT Office Visit [facility] Hematology Oncology [address] [place] [phone] Priya Doherty PA [address] [place] [address] Health Maintenance Due Date Last Done Comments [...] 10:14 AM EST [facility] RBC 5.10 4.50 - 5.50 M/mcL LAB HEMETOLOGY METHOD 08/29/2024 10:14 AM EST [facility] Hemoglobin 16.0 13.5 - 17.5 g/dL LAB HEMETOLOGY METHOD 08/29/2024 10:14 AM EST [facility] Hematocrit 48.4 42.0 - 54.0 % LAB HEMETOLOGY METHOD 08/29/2024 10:14 AM [facility] MCV 95.7 79.0 - 98.0 FL LAB HEMETOLOGY METHOD 08/29/2024 10:14 AM [facility] MCH 31.6 27.0 - 32.0 pcg LAB HEMETOLOGY METHOD 08/29/2024 10:14 AM [facility] MCHC 33.1 32.0 - 37.0 g/dL LAB HEMETOLOGY METHOD 08/29/2024 10:14 AM [facility] RDW 12.7 11.0 - 15.0 % LAB HEMETOLOGY METHOD 08/29/2024 10:14 AM [facility] Platelets 126(L) 130 - 400 K/mcL LAB HEMETOLOGY METHOD 08/29/2024 10:14 AM [facility] MPV 14.1(H) 7.0 - 11.0 FL LAB HEMETOLOGY METHOD 08/29/2024 10:14 AM [facility] NRBC 0.0 <1.0 % LAB HEMETOLOGY METHOD 08/29/2024 10:14 AM [facility] NRBC Absolute 0.00 <0.10 K/mcL LAB HEMETOLOGY METHOD 08/29/2024 10:14 AM [facility] Neutrophils Relative 51.3 % LAB HEMETOLOGY METHOD 08/29/2024 10:14 AM [facility] Lymphocytes Relative 34.4 % LAB HEMETOLOGY METHOD 08/29/2024 10:14 AM [facility] Monocytes Relative 9.0 % LAB HEMETOLOGY METHOD 08/29/2024 10:14 AM [facility] Eosinophils Relative 4.1 % LAB HEMETOLOGY METHOD 08/29/2024 10:14 AM [facility] Basophils Relative 0.9 % LAB HEMETOLOGY METHOD 08/29/2024 10:14 AM EST [facility] Immature Granulocytes Relative 0.3 % LAB HEMETOLOGY METHOD 08/29/2024 10:14 AM EST [facility] Neutrophils Absolute 3.87 1.50 - [...] K/mcL LAB HEMETOLOGY METHOD 08/29/2024 10:14 AM [facility] Immature Granulocytes Absolute 0.02 0.00 - 0.03 K/mcL LAB HEMETOLOGY METHOD 08/29/2024 10:14 AM [facility] Blood Venous blood specimen / Unknown Venipuncture / Unknown 08/29/2024 8:08 AM EST 08/29/2024 8:08 AM EST us Faustino Cruz MD LAB BLOOD ORDERABLES Final Result [facility] [address] [place] [address], * Protein and creatinine with ratio, urine (08/29/2024 8:08 AM EST) Protein, Urine 20 mg/dL LAB CHEMISTRY METHOD 08/29/2024 10:20 AM EST [facility] Prot/Creat, Ur 0.08 <=0.20 mg/mg creat LAB CHEMISTRY METHOD 08/29/2024 10:20 AM [facility] Creatinine, Urine 247.0 mg/dL LAB CHEMISTRY METHOD 08/29/2024 10:20 AM [facility] Urine Urine specimen obtained by clean catch procedure / Unknown Non-blood Collection / Unknown 08/29/2024 8:08 AM EST 08/29/2024 8:08 AM EST us Faustino Cruz MD LAB URINE ORDERABLES Final Result [facility] [address] [place] [address], * (ABNORMAL) Renal function panel (08/29/2024 8:08 AM EST) Sodium 140 133 - 145 mmol/L LAB CHEMISTRY METHOD 08/29/2024 10:04 AM [facility] Potassium 4.1 3.5 - 5.5 mmol/L LAB CHEMISTRY METHOD 08/29/2024 10:04 AM [facility] Chloride 106 96 - 110 mmol/L LAB CHEMISTRY METHOD 08/29/2024 10:04 AM [facility] CO2 27 21 - 32 mmol/L LAB CHEMISTRY METHOD 08/29/2024 10:04 AM [facility] Anion Gap 7 3 - 11 LAB CHEMISTRY METHOD 08/29/2024 10:04 AM [facility] Glucose 107(H) 70 - 100 mg/dL LAB CHEMISTRY METHOD 08/29/2024 10:04 AM [facility] BUN 21 5 - 25 mg/dL LAB CHEMISTRY METHOD 08/29/2024 10:04 AM [facility] Creatinine 1.17 0.70 - 1.30 mg/dL LAB CHEMISTRY METHOD 08/29/2024 10:04 AM [facility] eGFR 71 >=60 mL/min/1. 73m2 LAB CHEMISTRY METHOD 08/29/2024 10:04 AM EST [facility] Comment:Calculation based on the??Chronic Kidney Disease Epidemiology Collaboration (CKD-EPI) equation refit??without adjustment for race. BUN/Creatinine Ratio 17.9 LAB CHEMISTRY METHOD 08/29/2024 10:04 AM EST [facility] Albumin 4.1 3.2 - 5.0 g/dL LAB CHEMISTRY METHOD 08/29/2024 10:04 AM EST [facility] Calcium 9.5 8.5 - 10.5 mg/dL LAB CHEMISTRY METHOD 08/29/2024 10:04 AM [facility] Phosphorus 3.2 2.5 - 4.5 mg/dL LAB CHEMISTRY METHOD 08/29/2024 10:04 AM [facility] Blood Venous blood specimen / Unknown Venipuncture / Unknown 08/29/2024 8:08 AM EST 08/29/2024 8:08 AM EST Faustino Cruz MD LAB BLOOD ORDERABLES Final Result [facility] [address] [place] [address], from Last [address] [place] [address] [employer] Care Teams Wafer Cleaner Relationship Specialty Start Date End Date Gordo Denney MD [address] [place] [id number] PCP - General 06/10/23
--- OUTSIDE RECORDS SUMMARY | 2024-11-08 17:45 | XMS_ITS | Encounter Summary ---
Author Organization [facility] Address [address] [place] [address] Care Team Providers Care Dispatcher Ship Pilot Name Role Phone Gordo Denney MD Primary Care Provider [phone] Encounter Details Date Type Department Care Team ([facility] Contact Info) Description 09/18/2024 Telephone Internal Medicine [facility] [address] [phone] Gordo Denney MD [address] [address] Social History Tobacco Use Types Packs/Day Years [...] 8:30 AM EST Office Visit Internal Medicine [address] [phone] Gordo Denney MD [address] [address] 12/06/2024 8:45 AM EDT Office Visit Internal [facility] [address] [phone] Gordo Denney MD [address] [address] 01/11/2025 1:15 PM EDT Office Visit [facility] Hematology Oncology [address] [place] [phone] Priya Doherty PA [address] [place] [address] documented as of this encounter Visit Diagnoses Not on filedocumented in this encounter Care Teams Dispatcher Ship Pilot Relationship Specialty Start Date End Date Gordo Denney MD [address] [address] PCP - General 06/10/23 documented as of this encounter
--- OUTSIDE RECORDS SUMMARY | 2024-11-08 17:46 | XMS_ITS | Clinical Summary ---
Author Organization [facility] [address] [place] [address] Phone Care Team Providers Care Student Services Counselor Name Role Phone Gordo Denney MD Primary Care Provider [phone] Medications benazepril-hydr ochlorthiazide (LOTENSIN HCT) 10-12.5 MG [...] Only [facility] [address] [place] [phone] Blaire Laboy [place] 08/21/2024 2:45 PM EST Office Visit [facility] [address] [place] [phone] Faustino Cruz MD Hypertension (Primary Dx); Other [...] Visit [facility] [address] [place] [phone] Faustino Cruz MD [address] [place] [address] [place] [address] Health Maintenance Due Date Last Done Comments Pneumococcal Vaccine: Pediat rics (0 to 5 Years) and At-Risk Patients (6 to 64 Years) (1 of 2 - PCV) 1971 Colorectal Cancer Screening: Annual FOBT 2012 Colorectal Cancer Screening: Colonoscopy 2012 Colorectal Cancer Screening: Sigmoidoscopy 2012 Hepatitis B Vaccine (1 of 3 - Risk 3-dose series) 06/14 Influenza Vaccine (#1) 2024 Insurance [place] [address] Care Teams Student Services Counselor Relationship Specialty Start Date End Date Gordo Denney MD [address] [place] [phone] PCP - General Internal Medicine 08/30/23
--- OUTSIDE RECORDS SUMMARY | 2024-11-08 17:46 | XMS_ITS | Encounter Summary ---
Author Organization [facility] Address [address] [address] Phone Care Team Providers Care Truckload Owner Operator Name Role Phone Gordo Denney MD Primary Care Provider [phone] Encounter Details Date Type Department Care Team (Late st Contact Info) Description 08/29/2024 Documentation Only [facility] [address] [place] [address] Juanita LaboyMyra, [place] [address] [place] [phone] Social History Tobacco Use Types Packs/Day Years [...] Visit [facility] [address] [place] [address] Faustino Cruz MD [address] [place] [address] [place] [phone] documented as of this encounter Visit Diagnoses Not on filedocumented in this encounter Care Teams Truckload Owner Operator Relationship Specialty Start Date End Date Gordo Denney MD [address] [address] PCP - General Internal Medicine 08/30/23 documented as of this encounter
== END 2024-11-08 14:55 | disposition home or self-care (01) ==
PROVIDERS: PCP Internal Medicine; Visit Provider Nurse Practitioner Family
DX: R68.82 Decreased libido (principal); N32.89 Other specified disorders of bladder; N40.0 Benign prostatic hyperplasia without lower urinary tract symptoms; R35.1 Nocturia; R35.0 Frequency of micturition; R39.15 Urgency of urination; R39.9 Unspecified symptoms and signs involving the genitourinary system; Z13.9 Encounter for screening, unspecified
CPT/HCPCS: 99214